=== PATIENT | female | born 1940 | race Caucasian/White ===

== ENCOUNTER → 2018-05-05 13:21 | Outpatient (CLI) | payer MEDICARE, OTHER, SELFPAY ==
--- NOTE | 2018-05-05 | DI.ECHO.S_ITS ---
[place] [facility] +---------+ : : [address] : : : : [id number] : : : : Phone: [phone]+ Echocardiogram Report + + :Name: JUAN ANTONIO SANDERS Study Date: 05/05/2018 Height: 62 in : :[facility] Weight: 96 lb : : Gender: Female BSA: 1.4 m2 : :: 1940 Age: 78 yrs BP: 142/70 mmHg: :Reason For Study: AFIB : :Ordering Physician: CAREY Brownlee : :Marlin Performed By: Asha Prater : :Referring: SINDY IVY : + + Interpretation Summary 1. Normal left ventricular size, wall thickness with an estimated EF of 40-45% 2. Normal right ventricular size with low normal systolic function. The estimated RVSP is 46 mm Hg. 3. Mild to moderate mitral regurgitation into a dilated left atrium When compared to the previous study of 2005 (only limited review of images as no report available), the LV function has decreased Procedure: A two-dimensional transthoracic echocardiogram with color flow and Doppler was performed. The study quality was technically good. Comparison is made with the echocardiogram of 10/12/2006. The heart rate ranged between 65-93 bpm during the study. Left Ventricle: The left ventricle is normal in size. There is normal left ventricular wall thickness. The ejection fraction is estimated to be 40-45%. Right Ventricle: The right ventricle is normal size. Right ventricular systolic function is at the lower limits of normal. Atria: The left atrium is severely dilated. The right atrium is mildly dilated. No color doppler evidence for an ASD. Mitral Valve: The mitral valve leaflets appear thickened, but open well. There is mild to moderate mitral regurgitation. Aortic Valve: The aortic valve is trileaflet. The aortic valve opens well. There is no aortic valve stenosis. There is trace aortic regurgitation. Tricuspid Valve: The tricuspid valve leaflets are thin and pliable. There is mild tricuspid regurgitation. The right ventricular systolic pressure is estimated at 46 mmHg assuming a right atrial pressure of 8 mm Hg. Pulmonic Valve: The pulmonic valve is not well seen, but is grossly normal. There is a trace or physiologic amount of pulmonic regurgitation. Great Vessels: The aortic root is normal size. The ascending aorta is normal in size. The pulmonary artery is normal size. The IVC is dilated (diameter is greater than 2.1 cm) yet it collapses greater than 50% with a sniff. This suggests a right atrial pressure of 8 mm Hg. Pericardium/ Pleura There is no pericardial effusion. There is no pleural effusion. MMode/2D Measurements & Calculations LVIDd: 4.1 cm LVOT diam: 1.9 cm LVIDs: 3.1 cm Ao root diam: 2.9 cm FS: 24.1 % asc Aorta Diam: 3.1 cm IVSd: 0.98 cm LVPWd: 0.83 cm LV cardoza. diameter/BSA (cm/m^2): 2.9 LV sys. diameter/BSA (cm/m^2): 2.2 LA A2 area: 20.5 cm2 RA long axis: 4.7 cm LA A4 area: 22.2 cm2 RA area: 17.0 cm2 LA length (vol): 5.1 cm RA vol: 52.2 ml LA vol: 75.4 ml RA : 37.3 ml/m2 LA vol index: 53.9 ml/m2 IVC diam: 2.1 cm RVD1 (basal): 3.5 cm LVAd ap4: 17.3 cm2 TAPSE: 1.2 cm LVAs ap4: 12.4 cm2 LVLs ap4: 5.2 cm LVAd ap2: 20.5 cm2 LVLd ap2: 7.3 cm Doppler Measurements & Calculations Ao V2 max: 68.6 cm/sec LVOT Max Balta: 53.6 cm/sec Ao V2 mean: 49.4 cm/sec LV V1 max P.2 mmHg Ao max P.9 mmHg LV V1 VTI: 9.1 cm Ao mean P.1 mmHg ROSEMARY(I,D): 2.3 cm2 Ao V2 VTI: 11.1 cm ROSEMARY(V,D): 2.2 cm2 sev ratio: 0.82 ROSEMARY indexed to BSA (cm^2/m^2): 1.6 MV E max balta: 89.6 cm/sec TR max balta: 307.1 cm/sec MV dec time: 0.20 sec TR max P.8 mmHg Reading Physician:ARACELY
== END ==
PROVIDERS: Visit Provider Physician Assistant
DX: I48.91 Unspecified atrial fibrillation (principal)
CPT/HCPCS: 93306

== ENCOUNTER → 2019-07-03 14:48 | Outpatient (CLI) | payer MEDICARE, OTHER, SELFPAY ==
--- NOTE | 2019-07-03 | DI.US.S_ITS ---
LIMITED ULTRASOUND OF LEFT BREAST AND AXILLA: 07/03/2019 CLINICAL: Palpable left axilla lump. Palpable left breast lump. Comparison is made to exam dated: 07/03/2019 [facility]. Color flow and real-time ultrasound of the left breast 5 o'clock, and axilla regions were performed. Duckworth scale images of the real-time examination were reviewed. There are atleast 6 enlarged left axillary nodes. A larger node measures 2.2 cm x 1.2 cm x 1.3 cm. The oval enlarged left level I axillary lymph node with eccentric cortical thickening with a circumscribed margin. This oval enlarged left level I axillary lymph node is hypoechoic with no fatty hilum. This correlates as palpated abnormality. Color flow imaging demonstrates that there is vascularity present. No abnormality seen at the 5:00 o'clock position to correspond to the clinically palpated abnormality. No suspicious right axillary adenopathy. IMPRESSION: SUSPICIOUS OF MALIGNANCY Several enlarged left axillary lymph nodes corresponding to the palpable abnormality are suspicious for malignancy. An ultrasound guided biopsy is recommended. No mass at 5:00 o'clock at the site of palpable abnormality. No right axillary adenopathy. Exam findings were discussed with the patient by Dr. Anatoly Chanel and called to the clinic office. This exam was interpreted at Station ID: [id number]. Electronically Signed By: Denver Sr M.D. slc/:07/03/2019 17:03:48 letter sent: Biopsy Required Ultrasound BI-RADS: 4 Suspicious abnormality
--- NOTE | 2019-07-03 14:52 | DI.MG.S_ITS ---
BILATERAL DIGITAL DIAGNOSTIC MAMMOGRAM 3D/2D: 07/03/2019 CLINICAL: Baseline exam. Left breast lumps. Comparison is made to exam dated: 07/03/2019 [facility]. The tissue of both breasts is extremely dense, which lowers the sensitivity of mammography. There is a lymph node in the left axilla corresponding to one of the palpable abnormalities. No mass is seen at 5:00 near the nipple in the left breast to correspond to the palpable abnormality. No other significant masses, calcifications, or other findings are seen in either breast. IMPRESSION: INCOMPLETE: NEEDS ADDITIONAL IMAGING EVALUATION Left axillary lymph node corresponding to palpable abnormality is indeterminate. An ultrasound is recommended and will immediately follow. No correlate for the palpable abnormality at 5:00 in the left breast. This exam was interpreted at Station ID: [id number]. NOTE: For mammograms, a report in lay terms will be sent to the patient. Approximately 15% of breast malignancies will not be visualized mammographically. In the management of a palpable breast mass, a negative mammogram must not discourage biopsy of a clinically suspicious lesion. Electronically Signed By: Denver Sr M.D. slc/:07/03/2019 16:50:40 ACR BI-RADS Category 0: Incomplete [id number]
== END ==
PROVIDERS: Visit Provider Student in an Organized Health Care Education/Training Program
DX: R92.8 Other abnormal and inconclusive findings on diagnostic imaging of breast (principal); N63.20 Unspecified lump in the left breast, unspecified quadrant; R59.0 Localized enlarged lymph nodes
CPT/HCPCS: 76642; 77066; G0279

== ENCOUNTER → 2019-07-18 13:58 | Outpatient (CLI) | payer MEDICARE, OTHER, SELFPAY ==
--- NOTE | 2019-07-18 | PATH_ITS ---
[facility] Accession Number: [id number] . 01 Material submitted: . axilla - LEFT AXILLARY LYMPH NODE . 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 . . . COMMENT: The results of this evaluation are discussed with Poppy Rodríguez PA-C at 1:25 p.m. on 07/20/2019. . Case reviewed by Dr. Jermain Brown, who agrees with the diagnosis. MRV/07/20/2019 . 02 Electronically signed: . Tye Olivares MD, Pathologist NPI- [id number] . 01 Gross description: . Received in one formalin-filled container, labeled with the patient's name and designated left axillary lymph node, are multiple 0.2 cm in diameter, cylindrical-shaped portions of tissue which range in length from 0.2 cm to 1.5 cm. The specimen is entirely submitted in one cassette. ([id number]) /R . 02 Microscopic: . Sections are of needle core biopsy material from the left axillary lymph node. The lymph node is partially replaced by metastatic, very poorly differentiated carcinoma. The tumor cells are large with round to slightly irregular nuclei, pale chromatin, and very prominent nucleoli. Cytoplasm is rather abundant and is pale, and cell margins are indistinct. Mitotic figures are easily identified. There is no definite organoid differentiation, and therefore, immunohistochemistry is performed in order to better delineate the primary site. . IMMUNOHISTOCHEMISTRY RESULTS: CK 5/6: Tumor cells positive. p40: Tumor cells negative. CK7: Tumor cells strongly positive. CK20: Tumor cells negative. HANNY-3: Tumor cells positive. . INTERPRETATION: This immunophenotype is most consistent with a primary tumor from breast or possibly urothelium. Clinical correlation is suggested. . * This test was developed and its performance characteristics determined by [facility]. It has not been cleared or approved by the U.S. Food and Drug Administration. The FDA has determined that such clearance or approval is not necessary. This test is used for clinical purposes. It should not be regarded as investigational or for research. . 02 Pathologist provided ICD-10: C77.3 . 02 CPT . 588130, W93134, [id number] Performed at: 01 [facility] [address] [id number] MD Shyam Edmonds MD Phone: [phone] Performed at: 02 [facility] [address] [place] [id number] MD Kamila Umaña MD Phone: [phone]
--- NOTE | 2019-07-18 | DI.US.S_ITS ---
ULTRASOUND GUIDED BIOPSY LEFT BREAST WITH MARKING DEVICE INSERTED AND POST ULTRASOUND IMAGIN07/18/2019 CLINICAL: Left axillary node biopsy. PATIENT CONSENT: Risks (minor bleeding, infection, vasovagal reaction and repeat procedure), benefits and alternatives were explained to the patient and written informed consent was obtained. Correlation is made to exams dated: 07/03/2019 ultrasound and 07/03/2019 mammogram [facility]. An ultrasound guided biopsy using real-time ultrasound was performed for the concerning lymph node located in the left axilla. This was described on the previous ultrasound report, and correlates with the patient's palpable abnormality. The skin was prepped in the usual manner. 8 mL of 1% lidocaine was used for local anesthesia. A skin rocío was made in the left axilla. The abnormality was approached from the lateral aspect. A 16 gauge biopsy needle was placed adjacent to the abnormality under ultrasound guidance. Once the needle was documented to be in the correct location, five specimens were obtained using an Achieve automated firing device. A Vision-type clip was inserted into the biopsy cavity. A skin adhesive and a skin closure strip were applied to the access site. Post procedure ultrasound imaging demonstrates the location device at the targeted area. The specimens were sent to the laboratory for pathological analysis. IMPRESSION: ULTRASOUND GUIDED BIOPSY MALIGNANT Ultrasound guided biopsy of the concerning lymph node in the left axilla was successful with no apparent post procedure complications. Pathology demonstrated metastatic poorly differentiated carcinoma morphologically consistent with primary in breast or possibly urothelium. Pathology is concordant. This exam was interpreted at Station ID: [id number]. Ganesh Sr M.D. [place] [facility] [place]:07/25/2019 18:46:18
--- NOTE | 2019-07-25 15:38 | ONC.MSW ---
Description: Navigation Introductory T/C Activity: MONKEY BREEDER/ASHLEY reviewed pt's new referral and clinicals. Attempted to call and introduce myself and establish initial rapport/assess immediate needs, however pt did not answer the phone, no voicemail. Called provider's office and relayed the appt time for patient for 08/16 at 2:00pm. 1:40pm check-in time. The office staff, Valentina, will call pt to relay this MONKEY BREEDER's contact info, apparently she screens her calls and will only answer if she knows you. Will plan to try to connect with her prior to her initial consult visit.
--- NOTE | 2019-08-09 11:28 | ONC.MSW ---
Description: Caregiving Resources Activity: Called pt and provided additional information re: caregiving agencies that could accomodate her shopping and in-home care needs. She will be going with [facility]. PATIENT SAFETY TECH encouraged her to call anytime before her initial consult visit should she have additional resource needs or questions.
== END ==
PROVIDERS: Visit Provider Student in an Organized Health Care Education/Training Program
DX: N63.20 Unspecified lump in the left breast, unspecified quadrant (principal)
CPT/HCPCS: 38505; 76942; 88305; 88341; 88342

== ENCOUNTER 2019-08-15 10:47 | Day surgery (SDC) | payer MEDICARE, OTHER, SELFPAY ==
[2019-08-15] VITALS (13 sets, daily range): BP systolic 159–213; BP diastolic 89–134; PULSE 76–103; RESP 12–17; TEMP 36.1–36.8; O2SAT 95–99; BMI 16.7
--- NOTE | 2019-08-15 | PATH_ITS ---
[facility] Accession Number: [id number] . 01 Material submitted: . breast - LEFT BREAST MASS . 01 Clinical history: . MALIGNANT NEOPLASM OF UNSPECIFIED SITE OF UNSPECIFIED . 01 Diagnosis: Left Breast Mass, Excision: Breast parenchyma with stromal fibrosis. Background breast with focal duct ectasia and obliteration, early fat necrosis, and apocrine metaplasia. Microcalcifications are present in association with benign breast parenchyma. Negative for atypia, carcinoma in situ, and malignancy. See comment. V 08/20/2019 0748 Local . 01 Comment: The specimen is entirely submitted for histologic examination; there is no evidence of biopsy site changes. . 01 Electronically signed: . Ann Marie Godoy MD, Pathologist NPI- [id number] . 01 Gross description: . Received: In formalin, labeled left breast mass, short=superior, long=lateral. Specimen: Left partial mastectomy. Weight: 9 grams. Measurement: 2.2 cm anterior to posterior, 4.4 cm medial to lateral, and 1.7 cm superior to inferior. Skin ellipse: Absent. Wire: Absent. Margins: Oriented by surgeon with short superior suture, long lateral suture and is inked as follows: posterior=black; anterior=purple; superior=blue; inferior=green; medial=yellow; lateral=orange. Sliced: Medial to lateral into 11 slices. Lesions: No obvious lesions are identified. Other: The cut surface is densely fibrous with minimal amount of yellow lobulated adipose tissue. Fixation time: The specimen was placed in formalin on 08/15/2019 with no time given. Approximate total fixation time in formalin-39 hours 30 minutes. Sections: A1: Slice 1, medial end of specimen, perpendicular. A2: Slice 2. A3: Slice 3. A4: Slice 4. A5: Slice 5. A6: Slice 6. A7: Slice 7. A8: Slice 8. A9: Slice 9. A10: Slice 10. A11-A12: Slice 11, lateral end of specimen, perpendicular. Specimen entirely submitted. ([id number]) /MRV 08/16/2019 1307 Local . 01 Microscopic: . Deeper levels are examined on blocks A9 and A11. . 01 Pathologist provided ICD-10: C50.919 . 01 CPT . 429687 Performed at: 01 [facility] [address] [place] [id number] MD Shyam Edmonds MD Phone: [phone]
[2019-08-15] MEDS: LACTATED RINGERS 1,000 ML 42 ML IV (13:00)
--- NOTE | 2019-08-15 13:13 | SUR.PREOP ---
Addendum to preoperative information; Anesthesia informed of B/P's, received no orders and will continue to start IV
--- NOTE | 2019-08-15 14:11 | PM.PREOP ---
Pre-operative Note Interval Note History & Physical reviewed/Exam performed by Physician: Yes Changes to H&P: No
[2019-08-15] MEDS: CEFAZOLIN 1 GM/50 ML FROZ.PIGGY IV (14:18)
--- NOTE | 2019-08-15 14:34 | SUR.OPER ---
Supine on padded OR bed, head on pillow, arms secured on padded arm boards at <90 degrees abduction, legs uncrossed, safety belt at thigh, tape over blanket over lower legs.
[2019-08-15] MEDS: BUPIVACAINE 0.25% (PF) VIAL 30 ML INJ (14:43)
--- NOTE | 2019-08-15 15:05 | PM.OP.1 ---
Operative Date/Time/Diagnoses Date of procedure: 08/15/19 Time of procedure: 15:34 Pre-op diagnosis: Left breast mass Post-op diagnosis: same Procedure & Clinicians Procedure: Excision of left breast mass Same procedure as scheduled: Yes Indications: 79-year-old female presented with a left breast mass and left axillary lymphadenopathy. She underwent workup that demonstrated no imaging findings of breast mass but axillary lymphadenopathy. The axillary lymph nodes were biopsied pathology demonstrated poorly differentiated carcinoma likely of breast origin. Since there was no imaging findings of a breast mass inconsistent with her physical exam she was taken to the operating room for an excision of the breast mass for diagnostic purpose Surgeon: Thong Lowe Click Yes if Unassisted: Yes Anesthesia Type: General Operative Notes Findings: Left breast mass Specimen(s): other (left breast mass) Estimated Blood Loss (mL): 5 Procedure in detail: Patient was brought to the operating room placed supine on the table. Bilateral lower extremity compression devices were applied. She was intubated with an endotracheal tube. She was prepped and draped in sterile fashion. A time-out was performed ensure the correct patient procedure necessary equipment within the operating room. The skin was infiltrated with 0.25% bupivacaine. Made incision in the inferior aspect of the breast over the palpable mass. Subcutaneous tissues were divided. The mass was dissected circumferentially and then passed off the field as specimen labeled left breast mass. A short stitch superior long stitch lateral. The wound was checked for hemostasis. The wound was then reapproximated using 3 0 Vicryl and then the skin closed with Monocryl followed by the application of Dermabond. Patient tolerated procedure well. Sponge instrument count at the end the operation was correct. Patient emerged from anesthesia was transferred to the postoperative care unit in stable condition. Post-operative Condition: stable Disposition: same day surgery
--- NOTE | 2019-08-15 16:57 | SUR.PHASEII ---
Called Dr. Lowe's office to clarify when to restart Eliquis, per MD's nurse, pt to restart Eliquis tomorrow, 08/16.
== END 2019-08-15 16:30 | disposition home or self-care (01) ==
PROVIDERS: Family Provider Internal Medicine; PCP Internal Medicine; Visit Provider Surgery
PROC: (CPT 19301; principal; 2019-08-15 12:45)
DX: C50.919 Malignant neoplasm of unspecified site of unspecified female breast (principal); I48.91 Unspecified atrial fibrillation; I10 Essential (primary) hypertension
CPT/HCPCS: 19301; J2405; J2704; J3010

== ENCOUNTER → 2019-09-05 18:57 | Outpatient (ROUT) | payer MEDICARE, OTHER, SELFPAY ==
[2019-09-05 19:01] LABS: Bacteria Urine None Seen
[2019-09-05 19:07] LABS: Appearance Urine UA CLEAR; Bilirubin Urine UA NEGATIVE (NEGATIVE); Color Urine UA YELLOW; Glucose Urine UA NEGATIVE (Negative); Ketones Urine UA NEGATIVE (NEGATIVE); Leukocyte Esterase Urine UA NEGATIVE (NEGATIVE); Nitrite Urine UA NEGATIVE (Negative); Occult Blood Urine UA NEGATIVE (Negative); Protein Urine UA NEGATIVE (Negative); Specific Gravity Urine UA <=1.005 (1.000-1.035); Urobilinogen Urine UA 0.2 E.U./dL (0.2)
[2019-09-05 19:09] LABS: Add Manual Diff / Slide Review NO; Basophils Absolute Auto 100 /uL (0-100); Basophils Percent Auto 0.8 % (0-2); Eosinophils Absolute Auto 200 /uL (0-450); Eosinophils Percent Auto 1.7 % (2-4); Hematocrit 40.5 % (36-46); Hemoglobin 13.1 g/dL (12.0-16.0); Lymphocytes Absolute Auto 1800 /uL (1100-4500); Lymphocytes Percent Auto 18.3 % (25-40); Mean Corpuscular HGB Conc 32.4 % (30-36); Mean Corpuscular Hemoglobin 27.9 PG (26-34); Mean Corpuscular Volume 86.1 fL (80-100); Monocytes Absolute Auto 500 /uL (0-900); Monocytes Percent Auto 5.1 % (3-14); Neutrophils Absolute Auto 7300 /uL (1500-7000); Neutrophils Percent Auto 74.1 % (50-75); Platelet Count 354 X10^3/uL (150-400); Red Cell Distribution Width 14.7 % (11.6-14.8); White Blood Cell Count 9.8 X10^3/uL (4.5-11.0)
[2019-09-05 19:24] LABS: Alanine Aminotransferase 24 IU/L (9-52); Albumin 4.6 g/dL (3.5-5.0); Albumin Globulin Ratio 1.5 (1.0-2.8); Alkaline Phosphatase 115 U/L (38-126); Aspartate Aminotransferase 30 IU/L (14-36); BUN Creatinine Ratio 27.1 (6-22); Bilirubin Total 0.5 mg/dL (0.2-1.3); Blood Urea Nitrogen 19 mg/dL (7-17); C-Reactive Protein Quant 0.7 mg/dL (<1.0); Calcium 10.4 mg/dL (8.4-10.2); Carbon Dioxide 28 mmol/L (22-32); Chloride 99 mmol/L (98-107); Estimated Glomerular Filt Rate > 60.0 mL/min (>60); Globulin 3.1 g/dL (1.7-4.1); Glucose 112 mg/dL (80-110); Potassium 3.3 mmol/L (3.4-5.1); Sodium 141 mmol/L (137-145); Total Protein 7.7 g/dL (6.3-8.2)
[2019-09-05 19:37] LABS: Culture Indicated Urine Cult Not Indicated; Erythrocyte Sedimentation Rate 7 MM/HR (0-20); RBC Urine 0-1/HPF (0-5/HPF); Squamous Epithelial Cell Urine 0-1 /HPF (0-5/HPF); Urine Comments Microscopic Normal; WBC Urine 0-1/HPF (0-5/HPF)
[2019-09-05 19:55] LABS: Thyroid Stimulating Hormone 1.13 uIU/mL (0.47-4.68)
[2019-09-06 15:25] LABS: HEMOLYSIS < 15 (0-50)
[2019-09-06 17:25] LABS: Prealbumin 23.5 mg/dL (17.6-36.0)
[2019-09-06 17:50] LABS: Carcinoembryonic Antigen 2.4 ng/mL (0.1-3.0)
[2019-09-11 10:38] LABS: Cancer Antigen 27.29 41 U/mL (< 38)
== END ==
PROVIDERS: Family Provider Internal Medicine; PCP Internal Medicine; Visit Provider Internal Medicine
DX: C80.1 Malignant (primary) neoplasm, unspecified (principal); R59.0 Localized enlarged lymph nodes; R63.4 Abnormal weight loss
CPT/HCPCS: 80053; 81001; 82378; 84134; 84443; 85025; 85651; 86140; 86300

== ENCOUNTER → 2019-09-13 07:57 | Outpatient (CLI) | payer MEDICARE, OTHER, SELFPAY ==
--- NOTE | 2019-10-02 11:42 | ONC.MSW ---
Description: T/C re: Appt. Activity: Left pt a message to please return this call re: her upcoming consult visit appt.
== END ==
PROVIDERS: Family Provider Internal Medicine; PCP Internal Medicine; Visit Provider Surgery
DX: N63.20 Unspecified lump in the left breast, unspecified quadrant (principal); Z53.9 Procedure and treatment not carried out, unspecified reason

== ENCOUNTER → 2019-12-11 12:22 | Outpatient (CLI) | payer MEDICARE, OTHER, SELFPAY ==
--- NOTE | 2019-12-11 12:50 | DI.CT.S_ITS ---
PROCEDURE: CT CHEST WO CON INDICATIONS: breast cancer, postiive lymph node TECHNIQUE: Noncontrast 5 mm thick sections acquired from the pulmonary apices to the posterior costophrenic angles. 1 mm lung window, 5 mm thick coronal and sagittal and 7 mm axial MIP reformats were then acquired. For radiation dose reduction, the following was used: automated exposure control, adjustment of mA and/or kV according to patient size. COMPARISON: [place], [place], CT PET CT FUSION SKULL 2 THIGH, 09/12/2019, 14:02. FINDINGS: Image quality: Excellent. Lungs and pleura: No acute consolidation. Scattered scarring/atelectasis. Upper lobe predominant centrilobular emphysema. There is biapical scarring. Prominent ill-defined pleural-based attenuation seen in the anterior right upper lobe for example image 69 series 3 is indeterminate especially in the absence of relevant prior studies. There is associated 7 mm nodular focus on image 63/3. Overall, this is unchanged since PET/CT dated 09/12/19, during which no significant FDG uptake suggestive of scarring. Recommend attention to this area however on subsequent surveillance CTs. No pleural effusions or pneumothorax. Central and peripheral airways are patent and normal in caliber. Mediastinum: Heart size is normal. Coronary artery calcifications are present. No pericardial effusion. No mediastinal adenopathy by size criteria. Thoracic aorta and central pulmonary arteries are normal in size. Esophagus is normal in caliber. No hiatal hernia. Numerous enlarged left axillary lymphadenopathy, which demonstrates interval progression since 09/11/19 for example lymph node image 14/2 measures 3.1 x 2.0 cm, previously 2.3 x 2.0 cm. Abdomen: Visualized upper abdominal solid organs and bowel loops appear normal in the absence of contrast. IMPRESSION: Interval progression in multiple enlarged left axillary lymph nodes since 09/12/19 Diffuse presumed scarring and postinflammatory changes in addition to upper lobes predominant centrilobular emphysema as commented above the. Dictated by: Anatoly Chanel M.D. on 12/11/2019 at 14:20 Approved by: Anatoly Chanel M.D. on 12/11/2019 at 14:28
== END ==
PROVIDERS: PCP Internal Medicine; Visit Provider Internal Medicine Hematology & Oncology
DX: C50.919 Malignant neoplasm of unspecified site of unspecified female breast (principal); R59.0 Localized enlarged lymph nodes; J43.2 Centrilobular emphysema; I25.10 Atherosclerotic heart disease of native coronary artery without angina pectoris
CPT/HCPCS: 71250

== ENCOUNTER → 2019-12-19 14:30 | Oncology outpatient (ONC) | payer MEDICARE, OTHER, SELFPAY ==
--- NOTE | 2019-08-15 15:51 | ONC.SCHED ---
After phone call from Dr. Lowe re: having bx performed 08/15/19 and not having pathology, left voicemail for patient that appt for 08/16/19 is cancelled and to call to reschedule after receipt of pathology
--- NOTE | 2019-08-21 16:06 | ONC.SCHED ---
Spoke with patient to get her scheduled for consult with Dr. Zeng 09/10/19. She would have liked to get in sooner but she can't arrange earlier apt.'s due to lack of a ride. I sent an email out to Sherlyn Rodney to see if she can help with rides.
--- NOTE | 2019-09-04 08:33 | ONC.MSW ---
Description: MRI Scheduling Activity: Per Dr. Lowe at [facility], [employer] f/u to clarify why pt has not yet had her MRI/CT that he had ordered. Pt had chosen a later ONC initial appt. due to transportation needs, so has not yet been seen in Oncology. DESK [employer]IE[employer] called [facility] and requested the manufacturing scheduler to assist with scheduling these scans.
--- NOTE | 2019-10-11 13:29 | P.CONONC_ITS ---
History of Present Illness - Data of Consult Patient: new to practice Consult date: 10/11/19 Requesting Physician: Tanesha Phillips MD Primary Care Provider: Tanesha Phillips MD - Consult Narrative Reason for consult: Left axillary mass Narrative: Annamarie Robins is a 79 year old female. She admits to smoking 2-3 pack per since she was about 15 years of age. She said that in May of 2019. she palpated two nonpainful lumps in her left arm pit. She went to [facility] and was evaluated by Poppy Rodríguez PA-C on 06/15/2019. Annamarie then underwent bilaterral diagnostic mammogram on . The mammogram showed a lymph node in the left axilla corresponding to one of the palpable abnormalities. Same day US of the breast showed There were at least 6 enlarged left axillary nodes. A larger node measured 2.2 cm x 1.2 cm x 1.3 cm noted. on 07/18/2019, she underwent Ultrasound guided biopsy of the concerning lymph node in the left axilla. The pathology showed metastatic poorly differentiated carcinoma With indeterminate primary site. In the cancer cells are negative for ER (<1%) and negative for MI (<1%) and negative for HER-2 (0+). The neoplastic cells were immunopositive for MOC31,Octavio?EP4, CD5/6, and GATA3. These neoplastic cells were negative for WT1, PAX8, CDX2, villin, TTF-1, napsin A, mammoglobin, GCDFP, and uroplakin. These immunohistochemistry studies are not diagnostic for breast origin, but to fever that possibility, if clinical and imaging findings are concordant. On July 27, 2019, patient was evaluated at that time Thong Lowe. There is a palpable breast mass in the inferior lateral left breast. However the mass was not radiographically identifiable. On August 15, 2019, patient was taken to the operating room for an excision of the palpable left breast mass for the purposes of diagnosis. The pathology showed breast parenchyma with stromal fibrosis, background breast with focal ductal ectasia and obliteration, early fat necrosis and apocrine metaplasia, microcalcifications in association with benign breast parenchyma, and was negative for atypia, carcinoma in situ, and malignancy. On 09/12/2019, she underwent PET/CT that revealed mildly increased uptake in the left breast, and multiple hypermetabolic left axillary lymph nodes consist with metastases. She denies headache. She has lower back and left hip pain, which is normal for her. She has osteopenia. She has shortness of breath presumably due to afib. Her appetite comes and goes. She denies nausea or vomiting. She lost about 8 lbs of weight. CC: August Zeng MD Home Medications and Allergies Home Medications Medication Instructions Recorded Confirmed Type Eliquis 2.5 mg PO BID 08/10/19 08/15/19 History chlorthalidone 25 mg PO DAILY PRN 08/10/19 08/10/19 History cholecalciferol (vitamin D3) 2,000 unit PO DAILY 08/10/19 08/15/19 History [Vitamin D3] gabapentin 300 mg PO BID 08/10/19 08/15/19 History losartan 50 mg PO BID 08/10/19 08/15/19 History metoprolol succinate 50 mg PO DAILY 08/10/19 08/15/19 History naproxen sodium [Aleve] 440 mg PO DAILY PRN 08/10/19 08/15/19 History tramadol 25 mg PO BID PRN 08/10/19 08/10/19 History tramadol 50 mg PO Q8H PRN #20 tab 08/15/19 Rx Allergies Allergy/AdvReac Type Severity Reaction Status Date / Time amlodipine AdvReac Urinary Verified 08/10/19 10:42 retention carvedilol AdvReac Weakness, Verified 08/10/19 10:42 abdominal pain hydrochlorothiazide AdvReac Hyponatremi Verified 08/10/19 10:42 a Medical History - Medical, Surgical, Family History Medical History: Medical History (Last Updated 08/14/19 @ 07:31 by Kesha Barahona RN) Afib Onset Date: ~04/2018 Breast cancer Cardiac murmur Cardiomyopathy Cervical spinal stenosis COPD (chronic obstructive pulmonary disease) Easy bruisability Former smoker Glaucoma Onset Date: ~04/2015 Lumbar degenerative disc disease Mitral and aortic valve regurgitation Osteopenia Osteoporosis PMR (polymyalgia rheumatica) Pre-diabetes Raynaud's syndrome SCC (squamous cell carcinoma) Onset Date: ~2007 Sepsis due to urinary tract infection Onset Date: 02/07/19 Short-term memory loss Surgical History: Surgical History (Last Updated 08/10/19 @ 11:00 by Kesha Barahona RN) History of appendectomy Hx of bilateral cataract extraction Onset Date: ~2011 Status post Mohs surgery - Social History Smoking Status: Former smoker (quitted 2013.) Substance Use Type: does not use Alcohol Intake: never Review of Systems All systems PM: reviewed and no additional remarkable complaints except as stated Exam Vital signs: Last Vital Signs Temp 98.2 F 10/11/19 15:27 Pulse 81 10/11/19 15:27 Resp 18 10/11/19 15:27 BP 181/98 H 10/11/19 15:27 Pulse Ox 98 10/11/19 15:27 - Constitutional positive no acute distress, positive cachectic, positive chronically ill appearing - Routine HEENT Exam Head: Present: normocephalic, atraumatic Eye: Present: EOMI, PERRL, normal accommodation. Absent: conjunctival icterus ENT: Present: mucous membranes moist - Routine Neck Exam Present: supple. Absent: lymphadenopathy, thyromegaly, tenderness, swelling - Routine Chest/Breast/Axilla Exam Axillae: Absent: lymphadenopathy, mass Comments: No palpable lymph nodes or masses in the right axilla. In the left axilla, there were at least three palpable matted lymph nodes. The biggest measuring about 3 cm in size. The smallest probably around 1 cm in size. Semi-mobile. Nontender. - Detailed Breast Exam left Inspection: Absent: rash, erythema, swelling, peau d'orange, nipple discharge, area of retraction, discharge Palpation: Absent: mass, tenderness, induration right Inspection: Absent: rash, erythema, swelling, peau d'orange, nipple discharge, area of retraction, discharge Palpation: Absent: mass, tenderness, induration - Routine Respiratory Exam Present: Clear to auscultation bilaterally, decreased breath sounds. Absent: wheezes - Routine Cardiovascular Exam Present: S1, S2, irregularly irregular - Routine Abdominal Exam Present: soft. Absent: tenderness, distended, organomegaly - Routine Extremities Exam Absent: edema - Routine Neurological Exam Present: alert, oriented X3, CN II-XII intact. Absent: sensory deficit, motor deficit - Routine Psychiatric Exam Present: normal affect - Additional findings Additional findings: patient appears very frail. clinical encounter was carried out with the patient lying on the examination table. She is complaining significant fatigue. Results - Labs Reviewed. - Imaging Additional studies: Procedures Insertion of intraocular lens prosthesis at time of cataract extraction, one- stage (07/26/12) Phacoemulsification and aspiration of cataract (07/26/12) Assessment and Plan (1) Mass of axillary tail of left breast Overview: 79 year old frail female palpated multiple lumps in the left axilla In May 2019. 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 Diagnostic bilateral mammogram as well as ultrasound of the left breast did not reveal any primary lesions in the breasts. and a palpable left breast inferior lateral mass was exercised in July 2019 which showed no evidence of malignancy. Post operative CT reviewed mild increased FDG uptake in the left breast in addition to multiple hypermetabolic masses/lymph nodes in the left axilla. Assessment: I talked with the patient that the question is we do not know whether this is a breast cancer with metastasis to the left axilla or a metastatic cancer from other primary site. I agree that the MRI of the breast is indicated. However patient is afraid of the MRI and she has significant claustrophobia. She refuses MRI of the breast. Patient has a very strong smoking history. She smoked 2-3 packs per day since the age of 15. I will obtain a CT chest w/o contrast to evaluate the possibility of primary lung cancer. In addition hopefully the CT chest will include the the breasts. Patient is very frail. I don't think she is a good candidate for any cytotoxic chemotherapy. In my opinion, chemotherapy is more harmful than benefit. If the CT scan does not show any lesions in the lung, I would recommend either surgical resection of the left axillary masses or radiation therapy as a palliative process. And hopefully it will provide some benefit. Otherwise palliated/hospice care are to be discussed. Plan: CT chest w/o contrast RTC after scan
[2019-10-11 15:27] VITALS: BP 181/98; PULSE 81; RESP 18; TEMP 36.8; O2SAT 98
--- NOTE | 2019-11-05 13:39 | ONC.MSW ---
Description: Transportation Activity: Called pt to clarify if she has transportation to her next appt. on 11/12, which she did not. She gave this CREDIT CARD CONTROL CLERK permission to call the [facility] to request transportation on her behalf. She also missed her last CT scan on 10/26, which she shares that she missed due to being ill for some time now. CREDIT CARD CONTROL CLERK called and requested the ride. They will call her directly by Friday 11/09 to confirm if they found a volunteer dumpster driver or not.
--- NOTE | 2019-11-20 12:48 | ONC.MSW ---
Description: T/C re: missed appts, care plan Activity: Called and left a message for pt re: what she would like to do moving forward, that we are needing to cancel her appt. on 11/22 because she missed her appt. on 11/16 and the doctor needed that information in order to move forward. Requested that she call this MANAGER PARK back to direct us as to what her goals are for continued care, including transportation to get to appts.
--- NOTE | 2019-12-10 15:56 | ONC.MSW ---
Description: T/C re: Appt. Coordination Activity: KOBI called pt to discuss tomorrow's appt., and that we have not been able to arrange a ride for her. She would like to keep the appt. and will plan to take a taxi. SERVICE RIG OPERATOR also was able to reschedule pt's CT scan for tomorrow at 1:00, prior to her appt. with Dr. Zeng. She expressed understanding and will make both appts.
[2019-12-11 15:18] VITALS: BP 182/90; PULSE 93; RESP 16; TEMP 36.6; O2SAT 100
--- NOTE | 2019-12-11 15:34 | P.PNONC_ITS ---
PN -Subjective Interval history: ID/CC: left axillary lymphadenopathy Oncology History: Annamarie Robins is a 79 year old female. She admits to smoking 2-3 pack per since she was about 15 years of age. She said that in May of 2019. she palpated two nonpainful lumps in her left arm pit. She went to [facility] [place] and was evaluated by Poppy Rodríguez PA-C on 06/15/2019. Annamarie then underwent bilaterral diagnostic mammogram on . The mammogram showed a lymph node in the left axilla corresponding to one of the palpable abnormalities. Same day US of the breast showed There were at least 6 enlarged left axillary nodes. A larger node measured 2.2 cm x 1.2 cm x 1.3 cm noted. on 07/18/2019, she underwent Ultrasound guided biopsy of the concerning lymph node in the left axilla. The pathology showed metastatic poorly differentiated carcinoma With indeterminate primary site. In the cancer cells are negative for ER (<1%) and negative for [place] (<1%) and negative for HER-2 (0+). The neoplastic cells were immunopositive for MOC31,Octavio?EP4, CD5/6, and GATA3. These neoplastic cells were negative for WT1, PAX8, CDX2, villin, TTF-1, napsin A, mammoglobin, GCDFP, and uroplakin. These immunohistochemistry studies are not diagnostic for breast origin, but to fever that possibility, if clinical and imaging findings are concordant. On July 27, 2019, patient was evaluated at that time Thong Lowe. There is a palpable breast mass in the inferior lateral left breast. However the mass was not radiographically identifiable. On August 15, 2019, patient was taken to the operating room for an excision of the palpable left breast mass for the purposes of diagnosis. The pathology showed breast parenchyma with stromal fi brosis, background breast with focal ductal ectasia and obliteration, early fat necrosis and apocrine metaplasia, microcalcifications in association with benign breast parenchyma, and was negative for atypia, carcinoma in situ, and malignancy. On 09/12/2019, she underwent PET/CT that revealed mildly increased uptake in the left breast, and multiple hypermetabolic left axillary lymph nodes consist with metastases. Interim Events: more sob, but no headache left axialla discomfort and pain. using pillow. 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 she is not using oxygen. no new bone pain. - Patient Self-Reported Symptoms SR Constitution: Fatigue/Malaise SR respiratory issues: Shortness of breath SR Cardiovascular issues: Shortness of breath with activity or lying flat SR Skin issues: Dry skin SR Gastrointestinal issues: Poor or no appetite SR Genitourinary issues: Frequent urination, Change in stream, Incontinence SR Musculoskeletal issues: Muscle weakness, Cold hands or feet, Difficulty walking SR Neuro issues: Tremors or shaking, Difficulty balancing SR Hematologic issues: Swollen lymph nodes SR Endocrine issues: Cold intolerance, Heat intolerance, Excessive thirst, Excessive urination, Hot flashes Home Medications and Allergies Home Medications Medication Instructions Recorded Confirmed Type Eliquis 2.5 mg PO BID 08/10/19 12/11/19 History chlorthalidone 25 mg PO DAILY PRN 08/10/19 12/11/19 History cholecalciferol (vitamin D3) 2,000 unit PO DAILY 08/10/19 12/11/19 History [Vitamin D3] gabapentin 300 mg PO BID 08/10/19 12/11/19 History losartan 50 mg PO BID 08/10/19 12/11/19 History metoprolol succinate 50 mg PO DAILY 08/10/19 12/11/19 History naproxen sodium [Aleve] 440 mg PO DAILY PRN 08/10/19 12/11/19 History tramadol 25 mg PO BID PRN 08/10/19 12/11/19 History tramadol 50 mg PO Q8H PRN #20 tab 08/15/19 12/11/19 Rx Allergies Allergy/AdvReac Type Severity Reaction Status Date / Time amlodipine AdvReac Urinary Verified 08/10/19 10:42 retention carvedilol AdvReac Weakness, Verified 08/10/19 10:42 abdominal pain hydrochlorothiazide AdvReac Hyponatremi Verified 08/10/19 10:42 a Exam Vital signs: Vital Signs Temp Pulse Resp BP Pulse Ox 12/11/19 15:18 97.8 F 93 H 16 182/90 H 100 Narrative: - Constitutional positive no acute distress, positive cachectic, positive chronically ill appearing - Routine HEENT Exam Head: Present: normocephalic, atraumatic Eye: Present: EOMI, PERRL, normal accommodation. Absent: conjunctival icterus ENT: Present: mucous membranes moist - Routine Neck Exam Present: supple. Absent: lymphadenopathy, thyromegaly, tenderness, swelling - Routine Chest/Breast/Axilla Exam Axillae: Absent: lymphadenopathy, mass Comments: No palpable lymph nodes or masses in the right axilla. In the left axilla, there were at least three palpable matted lymph nodes. The biggest measuring about 3 cm in size. The smallest probably around 1 cm in size. Semi-mobile. Nontender. - Detailed Breast Exam left Inspection: Absent: rash, erythema, swelling, peau d'orange, nipple discharge, area of retraction, discharge Palpation: Absent: mass, tenderness, induration right Inspection: Absent: rash, erythema, swelling, peau d'orange, nipple discharge, area of retraction, discharge Palpation: Absent: mass, tenderness, induration - Routine Respiratory Exam Present: Clear to auscultation bilaterally, decreased breath sounds. Absent: wheezes - Routine Cardiovascular Exam Present: S1, S2, irregularly irregular - Routine Abdominal Exam Present: soft. Absent: tenderness, distended, organomegaly - Routine Extremities Exam Absent: edema - Routine Neurological Exam Present: alert, oriented X3, CN II-XII intact. Absent: sensory deficit, motor deficit - Routine Psychiatric Exam Present: normal affect Results - Imaging Additional studies: Procedures Insertion of intraocular lens prosthesis at time of cataract extraction, one- stage (07/26/12) Phacoemulsification and aspiration of cataract (07/26/12) Assessment and Plan (1) Mass of axillary tail of left breast Overview: 79 year old frail female palpated multiple lumps in the left axilla In May 2019. 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 Diagnostic bilateral mammogram as well as ultrasound of the left breast did not reveal any primary lesions in the breasts. and a palpable left breast inferior lateral mass was exercised in July 2019 which showed no evidence of malignancy. Post operati ve CT reviewed mild increased FDG uptake in the left breast in addition to multiple hypermetabolic masses/lymph nodes in the left axilla. Assessment: Today I talked with the patient again about MR scan to evaluate possible primary breast cancer. However patient is very adamant that she did not want to do any MRI scan. I talked with her that in my opinion she most likely has a left breast triple negative breast cancer with metastasis to the left axillary lymph nodes. Up until now cook in a the scans showed no evidence of distant metastasis. I talked with her that we can probably try low-dose paclitaxel with or without atezolizumab to see if patient can have some response. If the lymph nodes showing leuks, patient may be a good candidate for surgical resection followed by radiation therapy. Patient voiced understanding and willingness to proceed. Plan: Port placement Weekly paclitaxle x 12 RTC after scan
--- NOTE | 2019-12-12 16:05 | ONC.SCHED ---
patient asked to have port placement cancelled, she will listen to the chemo teaching on the and decide then if she wants to go forward with the treatment
--- NOTE | 2019-12-20 13:44 | PC.NURSE ---
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 Pt accompanied by neighbor, Nadira. Pt added Nadira to auth to discuss list and completed form. Second RN, Shubham present throughout entire time of teaching. Provided written information on all topics discussed. Written materials printed from [email or web address] Patient given an overview of cancer and mechanism of action of cancer cells, that cancer is caused by cells that are dividing rapidly, and out of control. Traditional chemotherapy works by targeting the fast dividing cells and killing them. Chemotherapy affecting healthy cells dividing quickly causes many of the side effects (hair follicles, bone marrow, mucus membranes). Overview of blood cell functions of white cells to fight infection, red cells to carry oxygen, and platelets to stop bleeding was discussed, and that when bone marrow is affected by chemo, there is a decrease in production of these cells. Home care of the patient following chemotherapy was discussed. Body fluids will be contaminated for 48 hours following treatment, and any body fluids handled by caregivers should be handled wearing gloves, surfaces need to be cleaned with soap and water, any soiled linens or clothing need to be washed separately in hot water, toilet lid should be closed when flushing, person cleaning the toilet should wear gloves. How chemotherapy is administered by the RN?s in the clinic, that orders are double checked by pharmacy and checked again by two RN?s prior to administration. Nurses wear protective gear to prevent exposure to them of the chemotherapy agents which can also cause cancer. Cancer center information discussed and written hand out provided listing on-call oncologist available weekends and after hours triage R.N. hours and infusion room guide. New patient binder given which includes clinic names, phone numbers, clinic information, calendar, cancer glossary, and list of resources. Common side effects of chemotherapy were discussed with self care tips for prevention of complications. These included: Low blood counts (anemia, thrombocytopenia, neutropenia) Hair loss (alopecia) Nausea and vomiting Decreased appetite Loss of fertility Diarrhea Mouth sores Constipation Peripheral neuropathy Chemo brain/cognitive changes Fatigue Instructions on when to call your healthcare team or on-call physician immediately: Fever of 100.4 or higher, chills, any signs of infection Shortness of breath, wheezing, difficulty breathing, closing of throat, swelling of face, hives (signs of possible allergic reaction) Chest pain, fast heart beat or feelings of a different heart rhythm Swelling of an extremity with or without pain signs of stroke Instructions on when to call your healthcare team within the next 24 hours Nausea that interferes with ability to eat and unrelieved with prescribed medication Diarrhea (4-6 episodes in 24 hour period). Unusual bleeding or bruising Black or tarry stools, or blood in your stools Blood in the urine pain or burning with urination Extreme fatigue (unable to perform self-care activities) Mouth sores or sore areas in your mouth Bad headache Dizziness or lightheadedness Large weight gain over a short period of time General self-care tips while undergoing treatment discussed were as follows. Written materials were provided covering in detail and additional self care tips. Drink at least 2-3 quarts (8-10 glasses) of no-caffeinated beverages daily unless you are instructed otherwise and empty your bladder frequently Report any concerning symptoms to your healthcare team Avoid crowds and sick people, wash your hands frequently Use a soft bristled toothbrush, rinse three times a day with 1 tsp baking soda or 1 tsp salt mixed with warm water Avoid any mouthwashes or oral and skin products containing alcohol or fragrances Use electric razors to avoid cutting yourself Avoid contact sports or activities that could cause head injury or bleeding Avoid sun exposure, wear SPF 15 or higher, wear protective clothing Get plenty of rest, meter your activities Maintain good nutrition Avoid alcoholic beverages Attend your scheduled appointments and lab draws Pt admitted several times throughout teaching that she had a hard time remembering different things and appointments. Pt also explained that she thought the goal of therapy was cure. Explained to pt according to Dr. Zeng, the goal is palliative. Further explained the difference between the two goals of therapy, pt verbalized understanding. Pt had questions r/t finishing last step of teeth implant procedure prior to start of chemo. Pt also asked if she should see her anesthesiology physician prior to beginning treatment. Informed pt that this nurse would speak to Dr. Zeng on Dec 20 and would call her back with his response, pt in agreement. Encouraged pt to call this clinic with any questions and concerns that arise. Also, encouraged pt to further speak with Dr. Zeng regarding goal of treatment if she had any questions. Pt verbalized understanding.Tour of infusion room provided. All questions answered.
--- NOTE | 2019-12-20 14:54 | PC.NURSE ---
Addendum entered by Shubham Alejandra R.N. 12/20/19 15:01: Did confirm that pt does have life alert services. Addendum entered by Shubham Alejandra R.N. 12/20/19 14:58: Pt's neighbor was called, Nadira to be updated. Left message awaiting phone call back. Original Note: F/U phone conversation with Pt. post chemo teaching. Pt had questions for Dr. Zeng regarding dental implants, and seeing her recoater prior to chemotherapy. Pt was told that she does need to get dental implants prior to chemo, but that she does not need to see her recoater prior to chemo. Pt still undecided as to whether or not she is going to do chemo, will f/u with patient regarding chemo consent, port placement if she decides to pursue chemo as a treatment option. Pt verbalized understanding.
--- NOTE | 2019-12-25 10:24 | ONC.MSW ---
Description: T/C re: tx Activity: Left message for pt re: wanting to speak w/her about next steps for treatment, requested a return call.
--- NOTE | 2019-12-26 14:14 | ONC.MSW ---
Description: T/C re: goals for tx Activity: Pt returned call from [employer]. She states that her primary goal is to complete getting her implants done, which won't be done until the end of January. She is not interested in chemotherapy. [facility] provided teaching that her cancer will continue to progress without treatment, which was explained to her previously by Dr. Zeng. She expressed understanding, and is open to receiving an informational visit from [facility]. [facility] faxed pt's clinicals to hospice and requested the info visit. Pt will call this [facility] to update re: her plan.
== END ==
PROVIDERS: Family Provider Internal Medicine; PCP Internal Medicine; Visit Provider Internal Medicine Hematology & Oncology
DX: C77.3 Secondary and unspecified malignant neoplasm of axilla and upper limb lymph nodes (principal); C80.1 Malignant (primary) neoplasm, unspecified
CPT/HCPCS: 71250; 99204; 99214

== ENCOUNTER 2020-02-22 06:48 | Inpatient (IN) | payer MEDICARE, SELFPAY ==
[2020-02-22] VITALS (14 sets, daily range): BP systolic 133–243; BP diastolic 69–125; PULSE 78–92; RESP 14–19; TEMP 35.8–36.8; O2SAT 95–99; BMI 17.4
--- NOTE | 2020-02-22 06:49 | DI.RAD.S_ITS ---
PROCEDURE: XR HIP W PEL IF DONE LT 2V INDICATIONS: ground level fall TECHNIQUE: AP pelvis with lateral view(s) of the left hip(s). COMPARISON: None. FINDINGS: Bones: Displaced and varus angulated intertrochanteric left femur fracture. Pelvic ring appears intact. No suspicious bony lesions. Soft tissues: The visualized bowel gas pattern is normal. No suspicious soft tissue calcifications. IMPRESSION: Intertrochanteric proximal left femur fracture. Dictated by: Mckenna Hatch MD, PhD on 02/22/2020 at 8:55 Approved by: Mckenna Hatch MD, PhD on 02/22/2020 at 8:56
--- NOTE | 2020-02-22 06:49 | DI.RAD.S_ITS ---
PROCEDURE: XR WRIST LT 2V INDICATIONS: obvious deformity TECHNIQUE: A 2 views of the wrist were acquired. COMPARISON: None. FINDINGS: Bones: Comminuted, intra-articular, displaced and angulated distal radius fracture. Displaced ulnar styloid process fracture. No suspicious bony lesions. Radiocarpal, triscaphe and first CMC joint osteoarthritis. Scaphoid view: Not requested. Soft tissues: No suspicious soft tissue calcifications. IMPRESSION: 1. Comminuted, intra-articular distal radius fracture. 2. Displaced ulnar styloid process fracture. Dictated by: Mckenna Hatch MD, PhD on 02/22/2020 at 8:52 Approved by: Mckenna Hatch MD, PhD on 02/22/2020 at 8:53
--- NOTE | 2020-02-22 06:49 | DI.RAD.S_ITS ---
PROCEDURE: XR CHEST 1V INDICATIONS: fall, trauma, preop TECHNIQUE: One view of the chest was acquired. COMPARISON: [facility], , CHEST 2 VIEW, 12/24/2011, 12:49. FINDINGS: Surgical changes and devices: None. Lungs and pleura: Lungs are clear. No pleural effusions or pneumothorax. Lungs are hyperinflated suggesting COPD. Mediastinum: Mediastinal contours appear normal. Heart size is normal. Bones and chest wall: No suspicious bony lesions. Overlying soft tissues appear unremarkable. IMPRESSION: No acute cardiopulmonary disease process. Dictated by: Mckenna Hatch MD, PhD on 02/22/2020 at 8:53 Approved by: Mckenna Hatch MD, PhD on 02/22/2020 at 8:54
--- NOTE | 2020-02-22 06:58 | ED_ITS ---
HPI - Fall <Santana Ferreira DO - Last Filed: 02/22/20 23:31> General Chief Complaint: Fall Stated Complaint: GLF Time Seen by Provider: 02/22/20 06:48 Source: patient and EMS Mode of arrival: EMS Limitations: no limitations History of Present Illness HPI Narrative: 79F former smoker with a history of hypertension, lung cancer and AFib on [place] was out walking her dog this morning when she tripped and fell landing on her left wrist and hip suffering significant pain and obvious deformities. It is unclear if she hit her head or not. She does not have full recall. She denies any headache or neck pain. She denies any chest pain or shortness of breath. Both her wrist and her hip hurt worse with range of motion and improves with rest. EMS transported her and placed her in appropriate splints. She denies any numbness, tingling or weakness. Related Data Home Medications Medication Instructions Recorded Confirmed gabapentin 300 mg PO BID 08/10/19 02/22/20 losartan 50 mg PO BID 08/10/19 02/22/20 metoprolol succinate 50 mg PO DAILY 08/10/19 02/22/20 acetaminophen 325 mg PO Q4-5H PRN 02/22/20 02/22/20 aspirin 81 mg PO DAILY 02/22/20 02/22/20 dexamethasone 2 mg PO DAILY 02/22/20 02/22/20 docusate sodium [Colace] 100 mg PO DAILY 02/22/20 02/22/20 omeprazole 20 mg PO DAILY 02/22/20 02/22/20 Allergies Allergy/AdvReac Type Severity Reaction Status Date / Time amlodipine AdvReac Urinary Verified 08/10/19 10:42 retention carvedilol AdvReac Weakness, Verified 08/10/19 10:42 abdominal pain hydrochlorothiazide AdvReac Hyponatremi Verified 08/10/19 10:42 a Review of Systems <DO Chu Brush Last Filed: 02/22/20 23:31> Constitutional Constitutional: Denies chills, Denies fatigue, Denies fever(s), Denies frequent falls, Denies lethargy and Denies weakness Eyes Eyes: Denies change in vision, Denies eye discharge, Denies irritation and Denies loss of vision ENT Ears, Nose, Mouth, and Throat: Denies change in voice, Denies dizziness, Denies neck pain, Denies sore throat and Denies throat swelling Cardiovascular Cardiovascular: Denies chest pain, Denies irregular heart rhythm, Denies lightheadedness, Denies palpitations, Denies dyspnea, Denies dyspnea on exertion and Denies orthopnea Respiratory Respiratory: Denies cough, Denies dyspnea, Denies dyspnea on exertion and Denies wheezing Gastrointestinal Gastrointestinal: Denies abdominal pain, Denies change in bowel habits, Denies diarrhea, Denies nausea and Denies vomiting Genitourinary Genitourinary: Denies hematuria, Denies flank pain, Denies urinary incontinence and Denies urinary urgency Musculoskeletal Musculoskeletal: Denies back pain, Reports joint swelling, Reports limited range of motion, Denies muscle weakness, Denies neck pain, Denies numbness and Denies tingling Integumentary/Breasts Skin/Breast: Denies pruritus, Denies erythema, Denies rash and Denies wounds Neurologic Neurologic: Denies behavioral changes, Denies confusion, Denies dizziness, Denies frequent falls, Denies loss of vision, Denies numbness, Denies tingling and Denies weakness Psychiatric Psychiatric: Denies anxiety, Denies behavioral changes, Denies confusion, Denies depression, Denies homicidal ideation and Denies suicidal ideation Endocrine Endocrine: Denies fatigue, Denies flushing and Denies palpitations Hematologic/Lymphatic Hematologic/Lymphatic: Denies easy bruising Allergic/Immunologic Allergic/Immunologic: Denies urticaria, Denies throat swelling and Denies wheezing Patient History <Santana Ferreira DO - Last Filed: 02/22/20 23:31> Medical History Afib (Acute ~04/2018) Breast cancer (Acute) Cardiac murmur (Acute) Cardiomyopathy (Acute) Cervical spinal stenosis (Acute) COPD (chronic obstructive pulmonary disease) (Acute) Easy bruisability (Acute) Former smoker (Acute) Glaucoma (Acute ~04/2015) Lumbar degenerative disc disease (Acute) Mitral and aortic valve regurgitation (Acute) Osteopenia (Acute) Osteoporosis (Acute) PMR (polymyalgia rheumatica) (Acute) Pre-diabetes (Acute) Raynaud's syndrome (Acute) SCC (squamous cell carcinoma) (Acute ~2007) Sepsis due to urinary tract infection (Acute 02/07/19) Short-term memory loss (Acute) Surgical History History of appendectomy (Acute) Hx of bilateral cataract extraction (Acute ~2011) Status post Mohs surgery (Acute) Social History household members: none Smoking Status: Former smoker alcohol intake: never substance use type: does not use additional social history: 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 Frail, elderly female in moderate level of discomfort HEAD: Atraumatic. Normocephalic. EYES: Pupils equal round and reactive. Extraocular motions intact. No scleral icterus. No injection or drainage. ENT: Nose without bleeding, purulent drainage. Throat without erythema, tonsillar hypertrophy or exudate. Airway patent. NECK: Trachea midline. Non tender CARDIOVASCULAR: Regular rate and rhythm without murmurs, gallops, or rubs. RESPIRATORY: Clear to auscultation. Breath sounds equal bilaterally. No wheezes, rales, or rhonchi. GASTROINTESTINAL: Abdomen soft, non-tender, nondistended. EXTREMITIES: Pain to palpation of left hip with shortening and external ro tation. This is closed and neurovascularly intact. No pain on palpation of mid femur, knee, ankle or foot. Pain to palpation of left wrist with obvious deformity consistent with distal radius fracture. This is closed and neurovascularly intact. No pain on palpation of left elbow or shoulder. BACK: Nontender without deformity or crepitance. No flank tenderness. NEURO: AOx3. SKIN: No rash or erythema of visible areas Initial Vital Signs Initial Vital Signs: Vital Signs Temperature 96.5 F L 02/22/20 06:35 Pulse Rate 78 02/22/20 06:35 Respiratory Rate 19 02/22/20 06:35 Blood Pressure 243/125 H 02/22/20 06:35 Pulse Oximetry 99 02/22/20 06:35 <Ziggy Cox DO - Last Filed: 02/22/20 09:04> Initial Vital Signs Initial Vital Signs: Vital Signs Temperature 96.5 F L 02/22/20 06:35 Pulse Rate 78 02/22/20 06:35 Respiratory Rate 19 02/22/20 06:35 Blood Pressure 243/125 H 02/22/20 06:35 Pulse Oximetry 99 02/22/20 06:35 <Ziggy Cox DO - Last Filed: 02/22/20 09:04> Orthopedic Splinting/Casting Injury #1: Side: left Upper Extremity Injury Location: wrist Upper Extremity Immobilizer: volar splint Post splinting neuro exam: intact Post splinting vascular exam: intact Placed by: Nursing <Ziggy Cox DO - Last Filed: 02/22/20 09:04> GCS [place] coma scale eye opening: Spontaneous [place] coma scale verbal response: Orientated Matthias coma scale motor response: Obey commands Matthias coma scale total score: 15 Course <Santana Ferreira DO - Last Filed: 02/22/20 23:31> Orders Ordered: Acetaminophen (Tylenol) 650 mg PO Q6HR PRN PRN Reason: Fever/Mild Pain (1-3) Al Hydrox/Mg Hydrox/Simethicone (Maalox Plus) 30 ml PO Q6HR PRN PRN Reason: Dyspepsia Aspirin (Aspirin Ec) 81 mg PO DAILY [facility] Dexamethasone (Decadron) 2 mg PO DAILY [facility] Last Admin: 02/22/20 12:00 Dose: 2 mg Documented by: CHANTALE Docusate Sodium (Colace) 100 mg PO DAILY [facility] Fentanyl (Sublimaze) 25 mcg IV Q1H PRN PRN Reason: Pain, Severe (7-10) Last Admin: 02/22/20 10:34 Dose: 25 mcg Documented by: LEO Gabapentin (Neurontin) 300 mg PO BID [facility] Last Admin: 02/22/20 21:31 Dose: 300 mg Documented by: NESTOR Sodium Chloride (Normal Saline 0.9%) 1,000 mls @ 75 mls/hr IV CONT [facility] Last Admin: 02/22/20 22:44 Dose: 75 mls/hr Documented by: Infusion: 02/22/20 22:44 Dose: 75 mls/hr Documented by: Infusion: 02/22/20 10:27 Dose: 75 mls/hr Documented by: Infusion: 02/22/20 10:15 Dose: 125 mls/hr Documented by: Admin: 02/22/20 08:13 Dose: 125 mls/hr Documented by: JUS Lorazepam (Ativan) 0.5 mg IV Q6HR PRN PRN Reason: Anxiety Lorazepam (Ativan) 0.5 mg PO Q6HR PRN PRN Reason: Anxiety Losartan Potassium (Cozaar) 50 mg PO BID [facility] Last Admin: 02/22/20 21:31 Dose: 50 mg Documented by: Admin: 02/22/20 11:53 Dose: 50 mg Documented by: CHANTALE Magnesium Hydroxide (Milk Of Magnesia) 30 ml PO DAILY PRN PRN Reason: Constipation Metoprolol Succinate (Toprol Xl) 50 mg PO DAILY [facility] Last Admin: 02/22/20 11:54 Dose: 50 mg Documented by: CHANTALE Morphine Sulfate (Morphine) 2 mg IV Q4HR PRN PRN Reason: Pain, Moderate (4-6) Last Admin: 02/22/20 22:44 Dose: 2 mg Documented by: Admin: 02/22/20 17:57 Dose: 2 mg Documented by: Admin: 02/22/20 14:18 Dose: 2 mg Documented by: CHANTALE Naloxone HCl (Narcan) 0.2 mg IV Q2MIN PRN PRN Reason: Opiate Reversal Ondansetron HCl (Zofran) 4 mg IV Q4HR PRN PRN Reason: Nausea And Vomiting Last Admin: 02/22/20 16:10 Dose: 4 mg Documented by: NESTOR Pantoprazole Sodium (Protonix) 20 mg PO 0600 [facility] Sennosides (Senna) 17.2 mg PO BEDTIME [facility] Last Admin: 02/22/20 21:31 Dose: 17.2 mg Documented by: NESTOR Discontinued Medications Fentanyl (Sublimaze) 25 mcg IV NOW ONE Stop: 02/22/20 08:08 Last Admin: 02/22/20 08:13 Dose: 25 mcg Documented by: JUS Fentanyl (Sublimaze) 25 mcg IV NOW ONE Stop: 02/22/20 08:36 Last Admin: 02/22/20 08:45 Dose: 25 mcg Documented by: ALAN Ondansetron HCl (Zofran) 4 mg IV NOW ONE Stop: 02/22/20 09:00 Last Admin: 02/22/20 09:03 Dose: 4 mg Documented by: ALAN Vital Signs Vital signs: Vital Signs - 8 hr 02/22/20 06:35 02/22/20 08:30 Temperature 96.5 F L Pulse Rate 78 79 Respiratory Rate 19 18 Blood Pressure 243/125 H Blood Pressure [Right Arm] 218/125 H Pulse Oximetry 99 99 <Ziggy Gutiérrezarielle, DO - Last Filed: 02/22/20 09:04> Orders Ordered: Acetaminophen (Tylenol) 650 mg PO Q6HR PRN PRN Reason: Fever/Mild Pain (1-3) Al Hydrox/Mg Hydrox/Simethicone (Maalox Plus) 30 ml PO Q6HR PRN PRN Reason: Dyspepsia Aspirin (Aspirin Ec) 81 mg PO DAILY [facility] Dexamethasone (Decadron) 2 mg PO DAILY [facility] Last Admin: 02/22/20 12:00 Dose: 2 mg Documented by: CHANTALE Docusate Sodium (Colace) 100 mg PO DAILY [facility] Fentanyl (Sublimaze) 25 mcg IV Q1H PRN PRN Reason: Pain, Severe (7-10) Last Admin: 02/22/20 10:34 Dose: 25 mcg Documented by: LEO Gabapentin (Neurontin) 300 mg PO BID [facility] Last Admin: 02/22/20 21:31 Dose: 300 mg Documented by: NESTOR Sodium Chloride (Normal Saline 0.9%) 1,000 mls @ 75 mls/hr IV CONT [facility] Last Admin: 02/22/20 22:44 Dose: 75 mls/hr Documented by: Infusion: 02/22/20 22:44 Dose: 75 mls/hr Documented by: Infusion: 02/22/20 10:27 Dose: 75 mls/hr Documented by: Infusion: 02/22/20 10:15 Dose: 125 mls/hr Documented by: Admin: 02/22/20 08:13 Dose: 125 mls/hr Documented by: JUS Lorazepam (Ativan) 0.5 mg IV Q6HR PRN PRN Reason: Anxiety Lorazepam (Ativan) 0.5 mg PO Q6HR PRN PRN Reason: Anxiety Losartan Potassium (Cozaar) 50 mg PO BID [facility] Last Admin: 02/22/20 21:31 Dose: 50 mg Documented by: Admin: 02/22/20 11:53 Dose: 50 mg Documented by: CHANTALE Magnesium Hydroxide (Milk Of Magnesia) 30 ml PO DAILY PRN PRN Reason: Constipation Metoprolol Succinate (Toprol Xl) 50 mg PO DAILY [facility] Last Admin: 02/22/20 11:54 Dose: 50 mg Documented by: CHANTALE Morphine Sulfate (Morphine) 2 mg IV Q4HR PRN PRN Reason: Pain, Moderate (4-6) Last Admin: 02/22/20 22:44 Dose: 2 mg Documented by: Admin: 02/22/20 17:57 Dose: 2 mg Documented by: Admin: 02/22/20 14:18 Dose: 2 mg Documented by: CHANTALE Naloxone HCl (Narcan) 0.2 mg IV Q2MIN PRN PRN Reason: Opiate Reversal Ondansetron HCl (Zofran) 4 mg IV Q4HR PRN PRN Reason: Nausea And Vomiting Last Admin: 02/22/20 16:10 Dose: 4 mg Documented by: NESTOR Pantoprazole Sodium (Protonix) 20 mg PO 0600 [facility] Sennosides (Senna) 17.2 mg PO BEDTIME [facility] Last Admin: 02/22/20 21:31 Dose: 17.2 mg Documented by: NESTOR Discontinued Medications Fentanyl (Sublimaze) 25 mcg IV NOW ONE Stop: 02/22/20 08:08 Last Admin: 02/22/20 08:13 Dose: 25 mcg Documented by: JUS Fentanyl (Sublimaze) 25 mcg IV NOW ONE Stop: 02/22/20 08:36 Last Admin: 02/22/20 08:45 Dose: 25 mcg Documented by: ALAN Ondansetron HCl (Zofran) 4 mg IV NOW ONE Stop: 02/22/20 09:00 Last Admin: 02/22/20 09:03 Dose: 4 mg Documented by: ALAN Vital Signs Vital signs: Vital Signs - 8 hr 02/22/20 06:35 02/22/20 08:30 Temperature 96.5 F L Pulse Rate 78 79 Respiratory Rate 19 18 Blood Pressure 243/125 H Blood Pressure [Right Arm] 218/125 H Pulse Oximetry 99 99 MDM - Fall <Santana Ferreira DO - Last Filed: 02/22/20 23:31> Lab Data Result diagrams: 02/22/20 08:35 02/22/20 10:25 Labs: Lab Results 02/22/20 02/22/20 02/22/20 Range/Units 08:35 08:35 08:35 WBC 13.9 H (4.5-11.0) X10^3/uL RBC 4.87 (4.0-5.2) X10^6/uL Hgb 13.8 (12.0-16.0) g/dL Hct 42.2 (36-46) % MCV 86.8 (80-100) fL MCH 28.2 (26-34) PG MCHC 32.6 (30-36) % RDW 15.5 H (11.6-14.8) % Plt Count 268 (150-400) X10^3/uL Neut % (Auto) 80.5 H (50-75) % Lymph % (Auto) 10.6 L (25-40) % [place] % (Auto) 5.9 (3-14) % Eos % (Auto) 2.0 (2-4) % Baso % (Auto) 1.0 (0-2) % Neut # (Auto) 35539 H (1896-9878) /uL Lymph # (Auto) 1500 (7566-6490) /uL [place] # (Auto) 800 (0-900) /uL Eos # (Auto) 300 (0-450) /uL Baso # (Auto) 100 (0-100) /uL PT 10.3 (10.1-12.7) SECONDS INR 0.9 (0.9-1.3) Sodium 134 L (137-145) mmol/L Potassium 5.7 H (3.4-5.1) mmol/L Chloride 101 (98-107) mmol/L Carbon Dioxide 23 (22-32) mmol/L BUN 31 H (7-17) mg/dL Creatinine 0.70 (0.52-1.04) mg/dL Estimated GFR > 60.0 (>60) mL/min BUN/Creatinine Ratio 44.3 H (6-22) Glucose 143 H (80-110) mg/dL Calcium 9.2 (8.4-10.2) mg/dL <Ziggy Cox DO - Last Filed: 02/22/20 09:04> Lab Data Labs: Lab Results 02/22/20 02/22/20 02/22/20 Range/Units 08:35 08:35 08:35 WBC 13.9 H (4.5-11.0) X10^3/uL RBC 4.87 (4.0-5.2) X10^6/uL Hgb 13.8 (12.0-16.0) g/dL Hct 42.2 (36-46) % MCV 86.8 (80-100) fL MCH 28.2 (26-34) PG MCHC 32.6 (30-36) % RDW 15.5 H (11.6-14.8) % Plt Count 268 (150-400) X10^3/uL Neut % (Auto) 80.5 H (50-75) % Lymph % (Auto) 10.6 L (25-40) % [place] % (Auto) 5.9 (3-14) % Eos % (Auto) 2.0 (2-4) % Baso % (Auto) 1.0 (0-2) % Neut # (Auto) 30729 H (9205-2053) /uL Lymph # (Auto) 1500 (4350-6080) /uL [place] # (Auto) 800 (0-900) /uL Eos # (Auto) 300 (0-450) /uL Baso # (Auto) 100 (0-100) /uL PT 10.3 (10.1-12.7) SECONDS INR 0.9 (0.9-1.3) Sodium 134 L (137-145) mmol/L Potassium 5.7 H (3.4-5.1) mmol/L Chloride 101 (98-107) mmol/L Carbon Dioxide 23 (22-32) mmol/L BUN 31 H (7-17) mg/dL Creatinine 0.70 (0.52-1.04) mg/dL Estimated GFR > 60.0 (>60) mL/min BUN/Creatinine Ratio 44.3 H (6-22) Glucose 143 H (80-110) mg/dL Calcium 9.2 (8.4-10.2) mg/dL Imaging Data CT scan - head: Radiologist's Impression: [address] [address] [address] Scan Report Signed Patient: Michelle RobinsnaMR#: [id number] : 9Acct:[id number] Age/Sex: 79 / FDate of Service: 02/22/20 Loc: ED Accession Number: [id number] Procedure: CT head/brain wo con Ordering Provider: Santana Ferreira D.O. PROCEDURE: CT HEAD/BRAIN WO CON INDICATIONS: fall with head injury on eliquis TECHNIQUE: Noncontrast 4.5 mm thick angled axial sections acquired from the foramen magnum to the vertex, with coronal and sagittal reformats. For radiation dose reduction, the following was used: automated exposure control, adjustment of mA and/or kV according to patient size. COMPARISON: None. FINDINGS: Image quality: Excellent. CSF spaces: Basal cisterns are patent. No extra-axial fluid collections. The ventricles are symmetric in size and shape. Brain: No intracranial bleeds or masses. There is moderate cerebral volume loss for age, with resultant ventricular and sulcal prominence. There are severe periventricular and deep white matter chronic small vessel ischemic changes. There is intracranial internal carotid artery atherosclerosis. Skull and face: Calvarium and visualized facial bones appear intact, without suspicious lesions. Sinuses: Visualized sinuses and mastoids are clear. IMPRESSION: No acute intracranial disease process. Dictated by: Mckenna Hatch MD, PhD on 02/22/2020 at 7:58 Approved by: Mckenna Hatch MD, PhD on 02/22/2020 at 8:01 Extremity x-ray #1: Radiologist's Impression: [place] [address] XRay Report Signed Patient: Michelle RobinsnaMR#: [id number] : 9Acct:[id number] Age/Sex: 79 / FDate of Service: 02/22/20 Loc: ED Accession Number: [id number] Procedure: XR elbow LT 2V Ordering Provider: Ziggy Cox D.O. PROCEDURE: XR ELBOW LT 2V INDICATIONS: distal radius fracture TECHNIQUE: 2 views of the elbow were acquired. [facility] 7:00. FINDINGS: Bones: No fractures or dislocations. No suspicious bony lesions. Soft tissues: No elbow joint effusion. No suspicious soft tissue calcifications. IMPRESSION: No trauma at the elbow joint level is found. The patient has a distal radius fracture and also ulnar styloid process fracture documented earlier today. Dictated by: Bryce Velez M.D. on 02/22/2020 at 8:21 Approved by: Bryce Velez M.D. on 02/22/2020 at 8:22 Chest x-ray: Radiologist's Impression: [address] [address] XRay Report Signed Patient: Michelle RobinsnaMR#: [id number] : 9Acct:[id number] Age/Sex: 79 / FDate of Service: 02/22/20 Loc: ED Accession Number: [id number] Procedure: XR chest 1V Ordering Provider: Santana Ferreira D.O. PROCEDURE: XR CHEST 1V INDICATIONS: fall, trauma, preop TECHNIQUE: One view of the chest was acquired. COMPARISON: [facility], CHEST 2 VIEW, 12/24/2011, 12:49. FINDINGS: Surgical changes and devices: None. Lungs and pleura: Lungs are clear. No pleural effusions or pneumothorax. Lungs are hyperinflated suggesting COPD. Mediastinum: Mediastinal contours appear normal. Heart size is normal. Bones and chest wall: No suspicious bony lesions. Overlying soft tissues appear unremarkable. IMPRESSION: No acute cardiopulmonary disease process. Dictated by: Mckenna Hatch MD, PhD on 02/22/2020 at 8:53 Approved by: Mckenna Hatch MD, PhD on 02/22/2020 at 8:54 Extremity x-ray #2: Radiologist's Impression: [address] [address] XRay Report Signed Patient: Michelle RobnisnaMR#: [id number] : 9Acct:[id number] Age/Sex: 79 / FDate of Service: 02/22/20 Loc: ED Accession Number: [id number] Procedure: XR wrist LT 2V Ordering Provider: Santana Ferriera D.O. PROCEDURE: XR WRIST LT 2V INDICATIONS: obvious deformity TECHNIQUE: A 2 views of the wrist were acquired. COMPARISON: None. FINDINGS: Bones: Comminuted, intra-articular, displaced and angulated distal radius fracture. Displaced ulnar styloid process fracture. No suspicious bony lesions. Radiocarpal, triscaphe and first CMC joint osteoarthritis. Scaphoid view: Not requested. Soft tissues: No suspicious soft tissue calcifications. IMPRESSION: 1. Comminuted, intra-articular distal radius fracture. 2. Displaced ulnar styloid process fracture. Dictated by: Mckenna Hatch MD, PhD on 02/22/2020 at 8:52 Approved by: Mckenna Hatch MD, PhD on 02/22/2020 at 8:53 Extremity x-ray #3: Radiologist's Impression: Annamarie Robins 79 F [address] [address] XRay Report Signed Patient: Michelle RobinsnaMR#: [id number] : 1940cct:[id number] Age/Sex: 79 / FDate of Service: 02/22/20 Loc: ED Accession Number: [id number] Procedure: XR hip w pel if done LT 2V Ordering Provider: Santana Ferreira D.O. PROCEDURE: XR HIP W PEL IF DONE LT 2V INDICATIONS: ground level fall TECHNIQUE: AP pelvis with lateral view(s) of the left hip(s). COMPARISON: None. FINDINGS: Bones: Displaced and varus angulated intertrochanteric left femur fracture. Pelvic ring appears intact. No suspicious bony lesions. Soft tissues: The visualized bowel gas pattern is normal. No suspicious soft tissue calcifications. IMPRESSION: Intertrochanteric proximal left femur fracture. Dictated by: Mckenna Hatch MD, PhD on 02/22/2020 at 8:55 Approved by: Mckenna Hatch MD, PhD on 02/22/2020 at 8:56 MDM Narrative Medical decision making narrative: Dr cox: Received turned over from Dr Ferreira. Reviewed patient's history and physical and also radiologic studies. Patient has a GCS of 15. Head CT shows no signs of bleeding. Has a proximal left radius fracture and ulnar styloid fracture. This was placed in a volar splint for comfort. Patient also has a left intertrochanteric hip fracture. The hospice nurse was here in the emergency department. Did discuss the case with Dr. Duarte who will come and evaluate the patient. Also discussed the case with Dr. Gallegos who will admit. Discussed this with the patient. She expressed understanding and agreement. Discharge Plan Departure Patient Disposition: Admitted As Inpatient Clinical Impression: Closed fracture of left distal radius Qualifiers: Encounter type: initial encounter Fracture morphology: unspecified fracture morphology Qualified Code(s): S52.502A - Unspecified fracture of the lower end of left radius, initial encounter for closed fracture Fracture of femoral neck, left, closed Qualifiers: Encounter type: initial encounter Qualified Code(s): S72.002A - Fracture of unspecified part of neck of left femur, initial encounter for closed fracture Hypertension Qualifiers: Hypertension type: unspecified Qualified Code(s): I10 - Essential (primary) hypertension Fracture of ulnar styloid Qualifiers: Encounter type: initial encounter Fracture type: closed Fracture alignment: displaced Laterality: left Qualified Code(s): S52.612A - Displaced fracture of left ulna styloid process, initial encounter for closed fracture Discharge Date/Time: 02/22/20 09:43 Referrals: Amanda Castro MD [Primary Care Provider] - Admit Date/Time: 02/22/20 09:00 Admit Provider: Medardo Gallegos
--- NOTE | 2020-02-22 07:25 | PC.NURSE ---
Placed call to [facility] to inform of patient's arrival to the Emergency department. Nurse stated would get ahold of hospice Dr and he would call back with plan of care.
--- NOTE | 2020-02-22 07:40 | DI.RAD.S_ITS ---
PROCEDURE: XR ELBOW LT 2V INDICATIONS: distal radius fracture TECHNIQUE: 2 views of the elbow were acquired. COMPARISON: [facility], CR, XR WRIST LT 2V, 02/22/2020, 7:00. FINDINGS: Bones: No fractures or dislocations. No suspicious bony lesions. Soft tissues: No elbow joint effusion. No suspicious soft tissue calcifications. IMPRESSION: No trauma at the elbow joint level is found. The patient has a distal radius fracture and also ulnar styloid process fracture documented earlier today. Dictated by: Bryce Velez M.D. on 02/22/2020 at 8:21 Approved by: Bryce Velez M.D. on 02/22/2020 at 8:22
--- NOTE | 2020-02-22 07:52 | DI.CT.S_ITS ---
PROCEDURE: CT HEAD/BRAIN WO CON INDICATIONS: fall with head injury on eliquis TECHNIQUE: Noncontrast 4.5 mm thick angled axial sections acquired from the foramen magnum to the vertex, with coronal and sagittal reformats. For radiation dose reduction, the following was used: automated exposure control, adjustment of mA and/or kV according to patient size. COMPARISON: None. FINDINGS: Image quality: Excellent. CSF spaces: Basal cisterns are patent. No extra-axial fluid collections. The ventricles are symmetric in size and shape. Brain: No intracranial bleeds or masses. There is moderate cerebral volume loss for age, with resultant ventricular and sulcal prominence. There are severe periventricular and deep white matter chronic small vessel ischemic changes. There is intracranial internal carotid artery atherosclerosis. Skull and face: Calvarium and visualized facial bones appear intact, without suspicious lesions. Sinuses: Visualized sinuses and mastoids are clear. IMPRESSION: No acute intracranial disease process. Dictated by: Mckenna Hatch MD, PhD on 02/22/2020 at 7:58 Approved by: Mckenna Hatch MD, PhD on 02/22/2020 at 8:01
[2020-02-22] MEDS: SODIUM CHLORIDE 0.9% 1,000 ML 125 ML IV (08:13)
[2020-02-22] MEDS: fentaNYL 100 MCG/2 ML INJ 25 MCG IV ×3 (08:13→10:34)
[2020-02-22 08:48] LABS: Add Manual Diff / Slide Review NO; Basophils Absolute Auto 100 /uL (0-100); Eosinophils Absolute Auto 300 /uL (0-450); Hematocrit 42.2 % (36-46); Hemoglobin 13.8 g/dL (12.0-16.0); Lymphocytes Absolute Auto 1500 /uL (1100-4500); Lymphocytes Percent Auto 10.6 % (25-40); Mean Corpuscular HGB Conc 32.6 % (30-36); Mean Corpuscular Hemoglobin 28.2 PG (26-34); Mean Corpuscular Volume 86.8 fL (80-100); Monocytes Absolute Auto 800 /uL (0-900); Monocytes Percent Auto 5.9 % (3-14); Neutrophils Absolute Auto 11200 /uL (1500-7000); Neutrophils Percent Auto 80.5 % (50-75); Platelet Count 268 X10^3/uL (150-400); Red Blood Cell Count 4.87 X10^6/uL (4.0-5.2); Red Cell Distribution Width 15.5 % (11.6-14.8); White Blood Cell Count 13.9 X10^3/uL (4.5-11.0)
[2020-02-22 08:54] LABS: INR 0.9 (0.9-1.3); Prothrombin Time 10.3 SECONDS (10.1-12.7)
[2020-02-22] MEDS: ONDANSETRON 4 MG/2 ML INJ IV ×2 (09:03→16:10)
[2020-02-22 09:09] LABS: BUN Creatinine Ratio 44.3 (6-22); Blood Urea Nitrogen 31 mg/dL (7-17); Calcium 9.2 mg/dL (8.4-10.2); Carbon Dioxide 23 mmol/L (22-32); Chloride 101 mmol/L (98-107); Estimated Glomerular Filt Rate > 60.0 mL/min (>60); Glucose 143 mg/dL (80-110); Sodium 134 mmol/L (137-145)
[2020-02-22 09:12] LABS: HEMOLYSIS 212 (0-50); Potassium 5.7 mmol/L (3.4-5.1)
--- NOTE | 2020-02-22 10:23 | P.HP_ITS ---
History of Present Illness History of Present Illness Date Patient Seen: 02/22/20 Time Patient Seen: 10:00 Chief complaint: GLF Narrative: Patient is an 79-year-old female with advanced stage possible primary breast cancer metastatic to the left axillary lymph nodes, history of chronic atrial fibrillation who was transported by EMS to emergency department after gr ound level fall at home. She is a little bit unclear about how she tripped when I interviewed her but per ER physician note she was out walking her dog this morning when she tripped and fell landing on her left wrist and hip suffering significant pain and obvious deformities. She was unsure if she hit her head or not but head CT was negative. Hip x-ray showed intertrochanteric proximal left femur fracture. Upper extremity x-ray showed comminuted intra-articular distal radius fracture and displaced ulnar styloid process fracture. Patient was recently enrolled in hospice for locally metastatic cancer. She last saw Dr. August Zeng for oncology on 12/11/2019 and had declined breast MRI and sometime after the visit made decision to decline palliative chemotherapy treatment and start hospice instead. She lives independently although recently gave up driving. 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 She does report 5 lb weight loss in the last 2 weeks. She initially presented in May 2019 after she found 2 lumps in her left axilla. Mammogram showed lymph node in left axilla. She had ultrasound-guided biopsy of left axillary lymph nodes on 07/18/2019 which showed metastatic poorly differentiated adenocarcinoma with indeterminate primary site. Cancer cells were negative for ER and SD and HER2. In July 2019 she had surgical excision of palpable left breast mass which was negative for malignancy. In August 2019 she had a PET/CT which showed mild increased uptake in the left breast and multiple hypermetabolic left axillary lymph nodes consistent with metastases but no distal metastases. Patient has of hypertension, cardiomyopathy with reduced LV systolic function, chronic AFib and was taken off of Eliquis earlier this year and started on low- dose aspirin instead. She has no history of CAD or CO. An echo on 10/26/2018 showed decreased LV systolic function with LVEF 35-45%, moderate global hypokinesis, moderate MR, mild to moderate TR unchanged from last echo. She has not required diuretic therapy for her cardiomyopathy. She is a former smoker and carries diagnosis of COPD but it does not appear she has needed inhalers. She denies chest pain or dyspnea. Patient History Medical History Afib (Acute ~04/2018) Breast cancer (Acute) Cardiac murmur (Acute) Cardiomyopathy (Acute) Cervical spinal stenosis (Acute) COPD (chronic obstructive pulmonary disease) (Acute) Easy bruisability (Acute) Former smoker (Acute) Glaucoma (Acute ~04/2015) Lumbar degenerative disc disease (Acute) Mitral and aortic valve regurgitation (Acute) Osteopenia (Acute) Osteoporosis (Acute) PMR (polymyalgia rheumatica) (Acute) Pre-diabetes (Acute) Raynaud's syndrome (Acute) SCC (squamous cell carcinoma) (Acute ~2007) Sepsis due to urinary tract infection (Acute 02/07/19) Short-term memory loss (Acute) Surgical History History of appendectomy (Acute) Hx of bilateral cataract extraction (Acute ~2011) Status post Mohs surgery (Acute) Family & Social History Social History: household members none Safety & Behavioral: Feels Safe in Current Yes Environment Tobacco & Substance use: Tobacco type cigarettes Smoking Status Former smoker alcohol intake never Substance Use Type does not use Meds Home Medications and Allergies Home Medications Medication Instructions Recorded Confirmed Type gabapentin 300 mg PO BID 08/10/19 02/22/20 History losartan 50 mg PO BID 08/10/19 02/22/20 History metoprolol succinate 50 mg PO DAILY 08/10/19 02/22/20 History acetaminophen 325 mg PO Q4-5H PRN 02/22/20 02/22/20 History aspirin 81 mg PO DAILY 02/22/20 02/22/20 History dexamethasone 2 mg PO DAILY 02/22/20 02/22/20 History docusate sodium [Colace] 100 mg PO DAILY 02/22/20 02/22/20 History omeprazole 20 mg PO DAILY 02/22/20 02/22/20 History Allergies Allergy/AdvReac Type Severity Reaction Status Date / Time amlodipine AdvReac Urinary Verified 08/10/19 10:42 retention carvedilol AdvReac Weakness, Verified 08/10/19 10:42 abdominal pain hydrochlorothiazide AdvReac Hyponatremi Verified 08/10/19 10:42 a Review of Systems Review of Systems ROS: Yes All systems reviewed with the patient and are negative except as otherwise documented Exam Vital Signs (past 8 hours): - 02/22/20 06:35 02/22/20 08:30 02/22/20 09:36 Temperature 96.5 F L Pulse Rate 78 79 86 Respiratory Rate 19 18 16 Blood Pressure 243/125 H Blood Pressure [Right Arm] 218/125 H 206/108 H Pulse Oximetry 99 99 98 Oxygen Delivery Method Room Air Narrative Exam Narrative: GENERAL: Thin alert elderly female in at least moderate discomfort HEAD: Atraumatic. Normocephalic. EYES: Pupils equal, round and reactive. Extraocular motions intact. No scleral icterus. OROPHARYNX: Dry oral mucosa NECK: Trachea midline. No JVD or lymphadenopathy. CARDIOVASCULAR: Normal S1 and S2, irregularly irregular rhythm, no murmur RESPIRATORY: Clear to auscultation bilaterally. GASTROINTESTINAL: Abdomen superficial rigidity. No hepato-splenomegaly, no palpable mass. EXTREMITIES: No pretibial edema. The left arm is in a splint. The left leg is externally rotated. She has intact light touch distally. Unable to palpate pulses in feet. NEUROLOGICAL: Alert, oriented to person and place SKIN: warm, dry, no rash or bruise Objective Labs Result Diagrams: 02/22/20 08:35 02/22/20 08:35 Labs: Laboratory Results - last 24 hr 02/22/20 02/22/20 02/22/20 08:35 08:35 08:35 WBC 13.9 H RBC 4.87 Hgb 13.8 Hct 42.2 MCV 86.8 MCH 28.2 MCHC 32.6 RDW 15.5 H Plt Count 268 Neut % (Auto) 80.5 H Lymph % (Auto) 10.6 L [place] % (Auto) 5.9 Eos % (Auto) 2.0 Baso % (Auto) 1.0 Neut # (Auto) 37540 H Lymph # (Auto) 1500 [place] # (Auto) 800 Eos # (Auto) 300 Baso # (Auto) 100 PT 10.3 INR 0.9 Sodium 134 L Potassium 5.7 H Chloride 101 Carbon Dioxide 23 BUN 31 H Creatinine 0.70 Estimated GFR > 60.0 BUN/Creatinine Ratio 44.3 H Glucose 143 H Calcium 9.2 Assessment & Plan Assessment & Plan narrative: Patient is 79-year-old female with locally metastatic likely primary breast cancer, in hospice until this admission, chronic atrial fibrillation, cardiomyopathy with reduced LVEF, hypertension admitted due to left hip and left wrist fracture status post ground level fall. 1. Acute left hip fracture, present on admission, active -x-ray showed intertrochanteric proximal left femur fracture -Dr. Marlon Duarte consulting for orthopedic surgery -patient has fairly good performance status in spite of diagnosis of metastatic cancer, Karn[place]sky is 79 and ECOG is 1, and she may benefit from operative repair of her hip fracture. She did not have any distal metastases on her PET-CT scan in August 2019. -patient is awaiting to talk to Dr. Duarte to make final decision on whether to proceed to surgery, she will likely require rehab at shelter facility with combination of both hip fracture and wrist fracture -NPO until evaluated by ortho -maintenance IVF: NS at 75 cc/hour -fentanyl 25 mcg IV q.1 hour as needed 2. Acute left wrist fracture, present on admission, active -x-ray showed fracture of distal radius and ulnar styloid process -splinted in the ED 3. Chronic atrial fibrillation, present on admission, active -continue metoprolol succinate 50 mg daily and aspirin 81 mg daily 4. History of cardiomyopathy with reduced LVEF, present on admission, active -appears asymptomatic and has not required diuretics -continue losartan 50 mg b.i.d. and metoprolol succinate 50 mg daily 5. Locally metastatic cancer, likely breast primary, present on admission -hospice discontinued for this admission -continue dexamethasone 2 mg daily 6. Hypertension, present on admission, chronic -severe elevated BP 218/125 in ED due to pain -provide patient her routine morning BP medications Code status: DNR
[2020-02-22 11:08] LABS: HEMOLYSIS < 15 (0-50); Potassium 3.9 mmol/L (3.4-5.1)
[2020-02-22] MEDS: LOSARTAN 50 MG TABLET PO ×2 (11:53→21:31)
[2020-02-22] MEDS: METOPROLOL ER 50 MG TABLET PO (11:54)
[2020-02-22] MEDS: dexAMETHasone 1 MG TABLET 2 MG PO (12:00)
[2020-02-22 12:50] LABS: Bacteria Urine None Seen; RBC Urine None Seen (0-5/HPF)
[2020-02-22 12:51] LABS: Appearance Urine UA CLEAR; Bilirubin Urine UA NEGATIVE (NEGATIVE); Color Urine UA YELLOW; Glucose Urine UA NEGATIVE (Negative); Ketones Urine UA NEGATIVE (NEGATIVE); Leukocyte Esterase Urine UA NEGATIVE (NEGATIVE); Nitrite Urine UA NEGATIVE (Negative); Occult Blood Urine UA NEGATIVE (Negative); Protein Urine UA NEGATIVE (Negative); Urobilinogen Urine UA 0.2 E.U./dL (0.2)
[2020-02-22 13:03] LABS: Amorphous Sediment Urine 1+; Squamous Epithelial Cell Urine 0-1 /HPF (0-5/HPF); WBC Urine 0-1/HPF (0-5/HPF); pH Urine UA 7.5 (4.5-8.0)
[2020-02-22 13:04] LABS: Culture Indicated Urine Cult Not Indicated
--- NOTE | 2020-02-22 13:45 | PC.NURSE ---
Addendum entered by Barbara Hughes R.N. 02/22/20 14:54: Dr. Duarte at bedside with Abril RAMÍREZ. Original Note: Admit note: Patient admitted to room 208 from ED, required to be transferred from [facility] to bed via slider board. Pain at rest 3/10 to left arm and left lower extremity, with activity 9/10. Alert, oriented and very pleasant. IVF initiated, NPO status. Awaiting for Ortho consult. Dr. Gallegos at bedside. Oriented to room, environment, and plan of care. High fall risk precautions, call light within reach.
--- NOTE | 2020-02-22 14:14 | PM.CN ---
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 She is on hospice for a diagnosis of locally metastatic cancer with a presumed breast primary. She has recently been losing weight. By report of her caregivers she is at baseline a marginal ambulator who uses furniture as support to get around her condominium. She has no local family support. She got up and attempted to navigate in the dark this morning and suffered a fall injuring her left hip and wrist. She was taken to [facility] Emergency room where radiographs revealed an intertrochanteric left hip fracture and a displaced left distal radius fracture. Orthopedic consultation has been obtained to definitively treat the fractures. Meds Home Medications and Allergies Home Medications Medication Instructions Recorded Confirmed Type gabapentin 300 mg PO BID 08/10/19 02/22/20 History losartan 50 mg PO BID 08/10/19 02/22/20 History metoprolol succinate 50 mg PO DAILY 08/10/19 02/22/20 History acetaminophen 325 mg PO Q4-5H PRN 02/22/20 02/22/20 History aspirin 81 mg PO DAILY 02/22/20 02/22/20 History dexamethasone 2 mg PO DAILY 02/22/20 02/22/20 History docusate sodium [Colace] 100 mg PO DAILY 02/22/20 02/22/20 History omeprazole 20 mg PO DAILY 02/22/20 02/22/20 History Allergies Allergy/AdvReac Type Severity Reaction Status Date / Time amlodipine AdvReac Urinary Verified 08/10/19 10:42 retention carvedilol AdvReac Weakness, Verified 08/10/19 10:42 abdominal pain hydrochlorothiazide AdvReac Hyponatremi Verified 08/10/19 10:42 a Review of Systems Review of Systems ROS: Yes All systems reviewed with the patient and are negative except as otherwise documented Exam Vital Signs (past 8 hours): - 02/22/20 06:35 02/22/20 08:30 02/22/20 09:36 Temperature 96.5 F L Pulse Rate 78 79 86 Respiratory Rate 19 18 16 Blood Pressure 243/125 H Blood Pressure [Right Arm] 218/125 H 206/108 H Pulse Oximetry 99 99 98 02/22/20 10:30 02/22/20 11:17 02/22/20 11:40 Temperature 96.9 F L Pulse Rate 86 84 Respiratory Rate 18 Blood Pressure 162/115 H 175/94 H Blood Pressure [Right Arm] Pulse Oximetry 98 98 02/22/20 11:53 02/22/20 11:54 Temperature Pulse Rate 88 88 Respiratory Rate Blood Pressure 175/94 H 175/94 H Blood Pressure [Right Arm] Pulse Oximetry Oxygen Delivery Method Room Air Oxygen Flow Rate 0 Narrative Exam Narrative: The patient is seen lying in bed with obvious discomfort when she attempts to move. There is a splint on her left wrist with intact light touch distally. Any motion of the left hip is painful. She appears to have intact light touch distally in the left lower extremity. Objective Labs Result Diagrams: 02/22/20 08:35 02/22/20 10:25 Labs: Laboratory Results - last 24 hr 02/22/20 02/22/20 02/22/20 08:35 08:35 08:35 WBC 13.9 H RBC 4.87 Hgb 13.8 Hct 42.2 MCV 86.8 MCH 28.2 MCHC 32.6 RDW 15.5 H Plt Count 268 Neut % (Auto) 80.5 H Lymph % (Auto) 10.6 L [place] % (Auto) 5.9 Eos % (Auto) 2.0 Baso % (Auto) 1.0 Neut # (Auto) 88046 H Lymph # (Auto) 1500 [place] # (Auto) 800 Eos # (Auto) 300 Baso # (Auto) 100 PT 10.3 INR 0.9 Sodium 134 L Potassium 5.7 H Chloride 101 Carbon Dioxide 23 BUN 31 H Creatinine 0.70 Estimated GFR > 60.0 BUN/Creatinine Ratio 44.3 H Glucose 143 H Calcium 9.2 Urine Color Urine Appearance Urine pH Ur Specific [place] Urine Protein Urine Glucose (UA) Urine Ketones Urine Occult Blood Urine Nitrate Urine Bilirubin Urine Urobilinogen Ur Leukocyte Esterase Urine RBC Urine WBC Ur Squamous Epith Cells Amorphous Sediment Urine Bacteria Ur Culture Indicated? 02/22/20 02/22/20 10:05 10:25 WBC RBC Hgb Hct MCV MCH MCHC RDW Plt Count Neut % (Auto) Lymph % (Auto) [place] % (Auto) Eos % (Auto) Baso % (Auto) Neut # (Auto) Lymph # (Auto) [place] # (Auto) Eos # (Auto) Baso # (Auto) PT INR Sodium Potassium 3.9 D Chloride Carbon Dioxide BUN Creatinine Estimated GFR BUN/Creatinine Ratio Glucose Calcium Urine Color Yellow Urine Appearance Clear Urine pH 7.5 Ur Specific [place] 1.020 Urine Protein Negative Urine Glucose (UA) Negative Urine Ketones Negative Urine Occult Blood Negative Urine Nitrate Negative Urine Bilirubin Negative Urine Urobilinogen 0.2 Ur Leukocyte Esterase Negative Urine RBC None seen Urine WBC 0-1/hpf Ur Squamous Epith Cells 0-1 /hpf Amorphous Sediment 1+ Urine Bacteria None seen Ur Culture Indicated? Cult not indicated Radiographs: Radiographs reveal a comminuted left intertrochanteric hip fracture and a dorsally displaced angulated distal radius fracture. Assessment & Plan Assessment & Plan narrative: The patient is an 79-year-old female who was previously on hospice for non treated breast cancer. She is a marginal ambulator at baseline. To treat this surgically would require a dynamic hip screw for the left proximal femoral fracture and closed reduction and percutaneous pinning of the left wrist. It is unlikely she would return to immediate ambulation as we would likely have to protect the femur fracture from weight-bearing and she will not be allowed to weight bear on the left upper extremity, precluding the use of a walker. Non operative options include possible comfort care. MAGDA White and I did a combined discussion with the patient to present both surgical and palliative options. I have also discussed her care with her hospice physician, Dr. Adilene Quintero, who feels that hospice would likely be able to provide care either in the patient's home environment or in an adult family facility avoiding the use of a senior living facility. A senior living facility would almost undoubtedly be necessary after surgical treatment. I should also note I discussed this patient with the Ethics Committee, in view of the pending ?surge? of rodriguez virus cases and the need to protect our stock of personal protective equipment. After extensive discussion, it was decided that patient autonomy was the guiding factor here and that surgery should be performed if the patient elected to proceed. At this point the patient is still deciding what her choice will be. I will give her food for the evening, keep her NPO after midnight and address this with her tomorrow morning on rounds. Time Spent With Patient Time with patient: Greater than 35 minutes
[2020-02-22] MEDS: MORPHINE 2 MG/ML INJ IV ×3 (14:18→22:44)
[2020-02-22] MEDS: GABAPENTIN 300 MG CAPSULE PO (21:31)
[2020-02-22] MEDS: SENNOSIDES 8.6 MG TABLET 17.2 MG PO (21:31)
[2020-02-22] MEDS: SODIUM CHLORIDE 0.9% 1,000 ML 75 ML IV (22:44)
[2020-02-23] VITALS (11 sets, daily range): BP systolic 115–142; BP diastolic 76–91; PULSE 82–114; RESP 15–20; TEMP 36.4–36.8; O2SAT 94–96
--- NOTE | 2020-02-23 01:19 | PC.NURSE ---
Addendum entered by Erna Salinas R.N. 02/23/20 05:22: Responded to pt spilling coffee on floor. pt confused at what time it is and staff reoriented her to the time; pt responded with Oh, I thought it was 3 in the afternoon. pt started moaning and yelled out when repositioned lower extremities. I asked if she would like some pain medications, at which pt agreed. I administered 650mg Tylenol for pain to right knee and wrist. pt stated her leg hurt the most. Sheets and pillow case had to be replaced from coffee spill. Original Note: NOC Shift. pt alert and needs some assistance with orientation when waking up but orients easily. Reporting pain to left wrist and greater pain to left knee. Expressing concerns for her pets and that they ran away and concerned. Barnes draining to gravity and secure. NS infusing 75/hr and tolerating well. I assisted with repositioning in bed. pt reporting a history of breast cancer to left breast with only a nodule removed and also declining surgery on wrist that is scheduled for tomorrow.
--- NOTE | 2020-02-23 01:49 | PM.CN.PC.1 ---
History of Present Illness Consult details Date Patient Seen: 02/22/20 Time Patient Seen: 01:15 Chief complaint: GLF Reason for consult: Palliative Medicine Consutation Requesting provider: Jaydon Duarte Narrative: Reason for Consultation: Palliative medicine consultation received from Dr. Duarte regarding this unfortunate 79F, Annamarie Robins, who revoked her Hospice Medicare Benefit today to be evaluated in the ED s/p GLF in the home in the early hours of this morning. Patient reports that she was getting out of bed and slipped, stating that her carpet is slippery. This conflicts with statements made in the ED, where she reports she tripped and fell while walking her dog this morning. She fell and landed on her left wrist and hip, and immediately experienced significant pain and noted a left wrist deformity. Hip x-ray revealing of intertrochanteric proximal left femur fracture. Left upper extremity x-ray showed comminuted intra-articular distal radius fracture and displaced ulnar styloid process fracture. CT head negative. CXR negative for acute abnormality, reveals underlying COPD. Dr. Duarte has admitted the patient for evaluation of her distal radial fracture/displaced ulnar styloid process fracture and her proximal left femur fracture. He has requested palliative medicine consultation to help the patient understand all of her options for treatment, including surgical interventions with discharge to a SNF for skilled aggressive, rehabilitative therapies, versus discharge to a SNF for these therapies without undergoing surgery. In his opinion, these are her best options for discharge, though he is aware that the [facility] hospice agency has expressed their willingness to care for the patient in her condo, should she choose to forego the recommended surgical procedures. Past Medical History: Malignant neoplasm of the left breast (core biopsy revealing triple negative poorly differentiated carcinoma with indeterminate primary site), hypertension, cardiomyopathy with reduced LV systolic function, COPD with baseline dyspnea at rest, chronic AFib (anticoagulation discontinued when enrolled in hospice care, uses low-dose aspirin for anticoagulation). Echo on 10/26/2018 revealed decreased LV systolic function with LVEF 35-45%, moderate global hypokinesis, moderate MR, mild to moderate TR, unchanged from last echo. Social History: Patient was up until admission to [facility] enrolled in hospice for locally metastatic breast cancer. She last saw Dr. August Zeng for oncology consultation and ultimately chose to forego the treatment options she was provided, electing to engage [facility] for end of life care. She does live independently in a condo and does not have any family locally, and her H&P indicates she recently gave up driving. She has a friend who serves as her emergency contact Nadira Julien . She has no family locally, stating that she does have a sister who lives in their [place]. She has become close with her hospice team and states that she trusts them to help her make medical decisions. TC to the hospice director of medical staff services to discuss her case. Dr. Adilene Quintero reports that their experience with Ms. Robins has validated her resistance to healthcare people, and her reluctance to adhere to aggressive therapies for her cancer. States that the patient's PPS was 50% prior to her fall, and that she was able to ambulate in her apartment, though she is described as a furniture surfer by the team. Also reports that the patient has suffered an unintentional weight loss of >/=5-7lbs over the past month, but her ability to dress, bathe, and walk her dog was preserved. Chief Complaint: Patient c/o pain in the left wrist that waxes and wanes in intensity, sometimes crying out in pain during our visit together today. Movement exacerbates the pain. She has received a dose of Fentanyl this morning, she is unsure if this relieved her pain very well. As intense as the pain in her wrist is at times, the patient's biggest concern is her anxiety. She states she is unable to close my eyes without having a panic feeling, which exacerbates her baseline shortness of breath. She states that she uses a medication at home that the hospice team has provided, but does not remember the name of it, whenever she feels anxious. Reason for consultation Because of the patient's profound general decline in clinical status over months, frailty evident by weakness, frequent falls, new inability to provide of adequate self care, severe malnutrition (unintentional weight loss, fatigue) and given the presence of an underlying, incurable medical illness, the medical team is of the belief that life expectancy is limited to weeks to months, and has requested clarification of this unfortunate woman's specific medical goals. Reason for consultation Attending physician has requested palliative medicine to assist in furthering conversation with patient and family regarding the complex and sensitive medical issues of the perceived benefits/burdens of continued life prolonging treatments, realistic prognosis, perspectives on and dying, priority in clinical care and burden of physical, emotional and spiritual symptoms for patient and family. I have reviewed the medical record, radiographs, diagnostics, attempted to interview the patient (disoriented, no registration) and subsequently interviewed the patient DPOAHC. The following aspects are pertinent, current and remote medical history, social/emotional and family dynamics, current medications and effects, ROS, examination findings, prognosis, care planning, goal setting. Meds Home Medications and Allergies Home Medications Medication Instructions Recorded Confirmed Type gabapentin 300 mg PO BID 08/10/19 02/22/20 History losartan 50 mg PO BID 08/10/19 02/22/20 History metoprolol succinate 50 mg PO DAILY 08/10/19 02/22/20 History acetaminophen 325 mg PO Q4-5H PRN 02/22/20 02/22/20 History aspirin 81 mg PO DAILY 02/22/20 02/22/20 History dexamethasone 2 mg PO DAILY 02/22/20 02/22/20 History docusate sodium [Colace] 100 mg PO DAILY 02/22/20 02/22/20 History omeprazole 20 mg PO DAILY 02/22/20 02/22/20 History Allergies Allergy/AdvReac Type Severity Reaction Status Date / Time amlodipine AdvReac Urinary Verified 08/10/19 10:42 retention carvedilol AdvReac Weakness, Verified 08/10/19 10:42 abdominal pain hydrochlorothiazide AdvReac Hyponatremi Verified 08/10/19 10:42 a Review of Systems Review of Systems ROS: Yes All systems reviewed with the patient and are negative except as otherwise documented Exam Vital Signs (past 8 hours): - 02/22/20 20:00 02/22/20 20:05 02/22/20 23:45 Temperature 97.6 F 98.3 F Pulse Rate 90 79 Respiratory Rate 14 15 Blood Pressure 141/96 H 133/69 Pulse Oximetry 98 96 97 02/23/20 00:00 Temperature Pulse Rate Respiratory Rate Blood Pressure Pulse Oximetry 96 Oxygen Delivery Method Room Air Oxygen Flow Rate 0 Narrative Exam Narrative: Frail, cachectic, elderly appearing 79F appears engulfed by the hospital bed mattress. She is dyspneic at rest and reports she feels hot, and anxious. Left hand and arm are splinted. Pillow noted between legs. Patient intermittently grimaces and shifts her left arm, attempting to reposition for comfort. Const General: cooperative, No comfortable, anxious, frail appearing and ill appearing (acutely) Nutritional Appearance: cachectic, thin and underweight Orientation: alert, awake and oriented x3 Resp Effort & Inspection: able to speak in complete sentences, uses accessory muscles and other (tachypnea) Psych Appearance: grossly normal and well kempt Mental Status: mental status grossly normal Speech and Movement: speech and movement normal Mood: anxious mood Affect: anxious affect Attitude: cooperative Thought Process: normal Thought Content: normal Judgment: judgment good Objective Labs Result Diagrams: 02/22/20 08:35 02/22/20 10:25 Labs: Laboratory Results - last 24 hr 02/22/20 02/22/20 02/22/20 08:35 08:35 08:35 WBC 13.9 H RBC 4.87 Hgb 13.8 Hct 42.2 MCV 86.8 MCH 28.2 MCHC 32.6 RDW 15.5 H Plt Count 268 Neut % (Auto) 80.5 H Lymph % (Auto) 10.6 L [place] % (Auto) 5.9 Eos % (Auto) 2.0 Baso % (Auto) 1.0 Neut # (Auto) 93397 H Lymph # (Auto) 1500 [place] # (Auto) 800 Eos # (Auto) 300 Baso # (Auto) 100 PT 10.3 INR 0.9 Sodium 134 L Potassium 5.7 H Chloride 101 Carbon Dioxide 23 BUN 31 H Creatinine 0.70 Estimated GFR > 60.0 BUN/Creatinine Ratio 44.3 H Glucose 143 H Calcium 9.2 Urine Color Urine Appearance Urine pH Ur Specific [place] Urine Protein Urine Glucose (UA) Urine Ketones Urine Occult Blood Urine Nitrate Urine Bilirubin Urine Urobilinogen Ur Leukocyte Esterase Urine RBC Urine WBC Ur Squamous Epith Cells Amorphous Sediment Urine Bacteria Ur Culture Indicated? 02/22/20 02/22/20 10:05 10:25 WBC RBC Hgb Hct MCV MCH MCHC RDW Plt Count Neut % (Auto) Lymph % (Auto) [place] % (Auto) Eos % (Auto) Baso % (Auto) Neut # (Auto) Lymph # (Auto) [place] # (Auto) Eos # (Auto) Baso # (Auto) PT INR Sodium Potassium 3.9 D Chloride Carbon Dioxide BUN Creatinine Estimated GFR BUN/Creatinine Ratio Glucose Calcium Urine Color Yellow Urine Appearance Clear Urine pH 7.5 Ur Specific [place] 1.020 Urine Protein Negative Urine Glucose (UA) Negative Urine Ketones Negative Urine Occult Blood Negative Urine Nitrate Negative Urine Bilirubin Negative Urine Urobilinogen 0.2 Ur Leukocyte Esterase Negative Urine RBC None seen Urine WBC 0-1/hpf Ur Squamous Epith Cells 0-1 /hpf Amorphous Sediment 1+ Urine Bacteria None seen Ur Culture Indicated? Cult not indicated Assessment & Recommendations A & R narrative: Discussion: Discussed case with the medical team. Met with patient and Dr. Duarte at the patient's bedside. She is presented with surgical options for care by Dr. Duarte, who describes the surgery itself in detail (plate and pins to hip, external plate with pins to wrist) with a rehabilitation that will consist of months of PT/OT at a local SNF, which is unlikely to allow the patient independence as she declines and ultimately succumbs to her previously diagnosed metastatic, malignant neoplasm of the breast in the coming months. Dr. Duarte makes it very clear that surgery on her hip would be an effort to make her more comfortable with transfers to chair at bedside and back to bed, but will not likely result in her ability to ambulate or be independent again. Compounding her recovery will be her inability to use the left hand during the recovery period, such as for use of a walker. Patient c/o dry mouth, is offered sips of water, and is left to rest and eat lunch. call is placed to collaborate with Dr. Quintero, Organizational Effectiveness Consultant for [facility], with patient's permission. Per Dr. Quintero, the hospice team, who knows her well, report that she places a high value on her independence and will likely choose to come home rather than be placed in a penitentiary, finding her loss of independence intolerable. She has her little dog and a cat that she is concerned about, and the hospice team would like to reassure her that they have arranged for a neighbor to care for them while Ms. Robins is hospitalized. Dr. Quintero expresses the willingness of the hospice agency to take the patient back onto service this weekend, if the patient chooses to do so. They have offered a social science teacher visit to see the patient on Tuesday. Their team believes the patient may have resources to hire private duty caregivers, versus discharge to an Adult Family Home environment with hospice as a secondary plan. UPDATE: Met with patient at bedside. She is watching television and reports that the pain she has experienced in her left wrist is better than it was during our previous visit today. Patient is acutely aware of the COVID-19 outbreak and is watching CNN upon my arrival today. She expresses her reluctance to consider any plan of care that involves a discharge to a facility, which she considers dangerous for her, as many facilities have reported COVID-19 positive patients. 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 She agrees that she has suffered an unintentional, significant weight loss over the last couple of weeks. Patient is again presented with options for care including the surgical and non surgical options that Dr. Duarte has offered previously, as well as the options laid out by Dr. Quintero for end of life care either in her home with hired, private duty caregivers versus in an Adult Family Home, with their hospice agency. Patient is somewhat emotional reflecting on the loss of independence that this fall and resulting fractures have inflicted on her. She states, I wish I could have that hour back to change things. After quite a bit of consideration, the patient expresses her desire at this time to forego surgery in favor of returning home in the care of her trusted hospice team. She expresses concern about the cost of in home private duty caregivers, but feels that arrangements can be made, and is grateful to the hospice team for sending a SW to meet with her tomorrow to start arranging the care. She requests a call be placed to Dr. Duarte to let him know of her decision, is aware that a decision does not need to be made today and that she may take the night to think some more about this decision. Updated Dr. Duarte regarding the outcome of this palliative medicine consultation. Thank you for the opportunity to assist in this patient's plan of care during this hospitalization. We will continue to follow expectantly. Recommendations: - Recommend a benzodiazepine medication order for anxiety as needed - Maintain DNAR in patient's EMR - Ask Hospice team for a copy of the patient's [facility] POL - Referral to [facility] at patient's request Impression: - GLF - Left hip fracture - Left wrist displaced fracture - Metastatic, malignant neoplasm of the breast - Cachexia - Unintentional weight loss - Functional decline - Pain - Dyspnea - Anxiety - Palliative Medicine Consultation Coding: To remain informed regarding current treatment opportunities, provider reviewed extensive additional documentation of multiple treatment providers/facilities which was utilized to update the management plan. Total time in review of additional medical information is 32 minutes, external to in person evaluation. Time in assessment and management of acute and chronic medical diagnoses, pertinent history to palliative medicine decision making, discussion and management of clinical findings enumerated above as well as fears regarding the transition to a more end of life plan and and dying is 58 minutes, more than half of which is necessary for education and counseling. Advanced Care Planning discussion time is 22 minutes. The patient currently lacks testamentary documents for estate planning, DPOAHC but states she has a [facility] POLST and statement of wishes at her condo. Dialogue addresses confirmation of patient preferences at the end/near end of life including resuscitation wishes (no CPR, DNAR). Additional care limits discussed above.
[2020-02-23] MEDS: ACETAMINOPHEN 325 MG TABLET 650 MG PO (04:49)
[2020-02-23] MEDS: PANTOPRAZOLE 20 MG TABLET PO (07:04)
[2020-02-23] MEDS: DOCUSATE 100 MG CAPSULE PO (08:30)
[2020-02-23] MEDS: MORPHINE 2 MG/ML INJ IV (08:30)
[2020-02-23] MEDS: SODIUM CHLORIDE 0.9% 1,000 ML 75 ML IV ×2 (08:30→22:04)
[2020-02-23] MEDS: ASPIRIN EC 81 MG TABLET PO (08:30)
[2020-02-23] MEDS: GABAPENTIN 300 MG CAPSULE PO ×2 (08:30→20:30)
[2020-02-23] MEDS: LOSARTAN 50 MG TABLET PO (08:32)
[2020-02-23] MEDS: METOPROLOL ER 50 MG TABLET PO (08:33)
--- NOTE | 2020-02-23 09:50 | PM.PN.1 ---
Subjective Subjective Date Patient Seen: 02/23/20 Time Patient Seen: 09:50 Interval history: The patient appears more comfortable this morning. She confirms her decision to proceed with comfort care. Exam Vital Signs (past 8 hours): - 02/23/20 04:40 02/23/20 05:00 02/23/20 08:30 Temperature 98.0 F 97.9 F Pulse Rate 87 99 H Respiratory Rate 15 16 Blood Pressure 138/77 137/76 Pulse Oximetry 95 96 94 02/23/20 08:32 02/23/20 08:33 Temperature Pulse Rate 89 86 Respiratory Rate Blood Pressure 137/76 137/76 Pulse Oximetry Oxygen Delivery Method Room Air Oxygen Flow Rate 0 Narrative Exam Narrative: The patient is lying comfortably in bed. There is a splint that appears to be reasonably well-fitting on her left wrist. Objective Labs Result Diagrams: 02/22/20 08:35 02/22/20 10:25 Labs: Laboratory Results - last 24 hr 02/22/20 02/22/20 10:05 10:25 Potassium 3.9 D Urine Color Yellow Urine Appearance Clear Urine pH 7.5 Ur Specific [place] 1.020 Urine Protein Negative Urine Glucose (UA) Negative Urine Ketones Negative Urine Occult Blood Negative Urine Nitrate Negative Urine Bilirubin Negative Urine Urobilinogen 0.2 Ur Leukocyte Esterase Negative Urine RBC None seen Urine WBC 0-1/hpf Ur Squamous Epith Cells 0-1 /hpf Amorphous Sediment 1+ Urine Bacteria None seen Ur Culture Indicated? Cult not indicated Assessment & Plan Assessment & Plan narrative: The patient is stable 1 day status post left intertrochanteric hip fracture and left distal radius fracture. She is under care for terminal metastatic cancer and has been on hospice. After extensive discussion yesterday with myself and with MAGDA White, she has elected to proceed with palliative care. At this point, having confirmed her decision, I will sign off. If she reconsiders her decision and wishes to speak to a surgeon I would be happy to re-consult on the patient. I would recommend changing from the temporary fiberglass splint provided by the emergency room for her wrist to a removable Velcro splint (long enough to extend from the wrist to the proximal forearm) in about 2 weeks. The wrist fracture should remain immobilized for a total of approximately 8 weeks. Time Spent With Patient Time with patient: less than 15 minutes Quality VTE Deep Vein Thrombosis/Pulmonary Embolism Present on Admission: No
[2020-02-23] MEDS: dexAMETHasone 1 MG TABLET 2 MG PO (10:07)
[2020-02-23] MEDS: LORazepam 2 MG/ML INJ 0.5 MG IV (10:14)
--- NOTE | 2020-02-23 11:36 | CM.DANOTE ---
Addendum entered by Maegan Beauchamp LPN 02/23/20 14:17: Met now with pt along with assembly line worker Yamile. Pt was much more alert and admitted it was difficult to think. Periodically she cried out in pain saying, I have broken pieces of bone in me. Let pt know that Dr. Gallegos would like her to go to [facility] along with her hospice team so that she will have the care she needs during this time. She does not disagree and seems to be considering this. Left her talking further with Yamile. Agreed to check in with pt again tomorrow and will continue to work on this plan. Asked pt is there was anyone with whom I could discuss her discharge plan. She was unable to name anyone. Does say that she trusts her Hospice Team. Original Note: Discharge Planning/Care Management DCP: assessment: case received, EMR reviewed and discussed in Team Rounds. Went to room to check in with pt. She was found lying in bed, receiving nursing care and crying out in distress and pain. [facility] to obtain more information about pt. Pt is an 79 year old female who admitted yesterday to care of hospitalist team after a fall resulting in a hip and wrist fracture. She rescinded Hospice so that she could go to the ER for treatment. Consultants: Dr. Duarte from Orthopedics: consulting for fracture management options MAGDA Hahn for a Palliative Care Consultation Payer: Count Includes [facility] Medicare Admission status: INPT: per UR DANNY Crabtree Plan as identified by the providers and pt is for a resumption of [facility] services with care either at home or in a facility like an adult family home. Have faxed clinical documentation to [facility] and have spoken to the on- call dialysis social worker for Hospice: Yamile: [phone]. Yamile explains that pt has been on [facility] services since December 31, 2019 with dx of metastatic breast cancer. Pt has a son from whom she is estranged and a sister in [place]. Pt has been highly resistant to anyone coming into her home and has shown poor insight into planning for future care that she may need as her condition changes and needs increase. She has not wanted to give POA to anyone. Hospice had given pt information to help her get a peoplesoft financial developer set up but pt had not followed through with this yet. She did have a appliance parts counter clerk caregiver paid for privately but in January she let the caregiver go against the advice and concern of her Hospice team. On February 04 her assembly line worker made an APS referral due to her concerns being at home alone. Pt has been getting around in her condo by her self. Has no hospital bed or other DME thus far. Has a neighbor who is caring for her dog and cat, arranged by Hospice staff after pt was admitted to the hospital. Yamile clarifies that there is no team of people in place ready to provide care for pt at home. She says a private caregiver agency would need to be contacted and with the ability to provide 24/7 care. P: shared above info with Dr. Gallegos who now would like to see pt focus on a facility as her care needs will require 24/7 caregivers with pt likely bedbound. Attempted again to talk with pt and again went to her room. Pt has been given IV morphine earlier and then given Ativan as she had been expressing ongoing high anxiety. She did rouse to open her eyes but was unfocused and unable to talk. RN Barbara will update this d/c digital sales planner when pt is a bit more alert. Hospice SW Yamile will be here soon to see pt and collaborate on the POC. In meantime, contacted [facility]: Jenny: [phone] and then spoke with their nurse Meseret with intent to see about a plan for admission to their assisted setting under [facility]. This would provide pt with the privacy she so wishes plus access to 24/7 care including some nursing care. The [facility] is very open to this and could likely have pt set up for admission Tuesday or Tuesday. Will discuss this with pt as able and also with Yamile once she arrives. CM Discharge Assessment Start: 02/23/20 11:34 Freq: Status: Active Protocol: Document 02/23/20 11:34 ITV (Rec: 02/23/20 11:36 ITV [id number]) Discharge Planning Assessment Advance Directives? Yes: does not have at hospital , unable to obtain Advance Directives on File No History Provided By Medical Record Prior Living Arrangements Apartment/Condo Household Members none Community Services used prior to Hospice admission: Whiteboard Updated in Patient Room with Yes name and ext. # of Mill Control Operator Review Status In Process
--- NOTE | 2020-02-23 11:41 | DIET.PN ---
Dietary Progress Note Assessment: 79y F admitted after GLF at home causing wrist and hip fx which pt has elected not to surgically repair. Pt came off hospice from [facility] for admit and will go home on comfort care. Pt referred to nutrition for low MNA, screening for PCM. Pt appears wt stable since 12/11/2019 at 45kg, her BMI is low for age. Concern regarding pt's ability to sit up and feed self r/t hip and wrist fractures at the same time c/o surgical intervention. HT: 157.4cm WT: 45.6kg BMI: 18.4 MNA: 10 at risk for malnutrition Chilo: 16 Interventions: 1. Recc ONS Ensure Enlive once daily to support kcal and PRO needs in case pt's breakthrough px reduces appetite. Diet Order: General EER: 1400kcal (30kcal/kg), 55g PRO
--- NOTE | 2020-02-23 13:14 | PC.NURSE ---
Day shift note: Patient sleeping between care, VSS and afebrile. When awake, she is alert, and oriented to self, place, and situation, does not know time/date. CMS intact to LUE and RLE, deformity and edema noted to left hip region. Refuses ice for comfort. Medicated for pain as ordered with adequate relief. Pain exacerbates with activity and position changes, repositioning for comfort with extra caution to bony prominences and supporting LUE with pillow. LUE with Volar splint/joaquina wrap, fingers pink, warm, and movable. Dr. Duarte in this afternoon to update patient regarding plan of care. Yamile for [facility] to see patient this afternoon. FC to gravity, clear yellow urine draining. High risk precautions in place, bed alarm active, call light within reach. Patient with decreased PO intake, encouraging fluids, no issues with swallowing. Takes PO meds whole, one at a time with sips of water. Calls appropriately for staff assist.
--- NOTE | 2020-02-23 15:59 | P.PN_ITS ---
Subjective Subjective Date Patient Seen: 02/23/20 Interval history: Patient is an 79-year-old female with locally metastatic breast cancer who presented with left hip and wrist fractures after ground level fall at home. Patient was seen by Dr. Duarte for orthopedic consultation as well as Dr. Betzaida Hahn for [facility] ED of medicine consultation. She has elected to forego surgery and resume hospice care. At present time she is intermittently in moderate to severe pain although has not required frequent medication dosing. Exam Vital Signs (past 8 hours): - 02/23/20 08:30 02/23/20 08:32 02/23/20 08:33 Temperature 97.9 F Pulse Rate 99 H 89 86 Respiratory Rate 16 Blood Pressure 137/76 137/76 137/76 Pulse Oximetry 94 02/23/20 12:51 02/23/20 12:52 02/23/20 13:00 Temperature 97.5 F L Pulse Rate 88 82 Respiratory Rate 20 Blood Pressure 136/76 136/76 Pulse Oximetry 96 96 96 Oxygen Delivery Method Room Air Oxygen Flow Rate 0 Narrative Exam Narrative: General: Patient who is sleeping but easily awakened, appropriate and conversant Lungs: Breathing nonlabored Musculoskeletal: Left arm in splint, left leg externally rotated Objective Labs Result Diagrams: 02/22/20 08:35 02/22/20 10:25 Assessment & Plan Assessment & Plan narrative: Patient is an 79-year-old female with locally metastatic breast cancer who presented with left hip and wrist fractures after ground level fall at home. Patient was seen by Dr. Duarte for orthopedic consultation as well as Dr. Betzaida Hahn for [facility] ED of medicine consultation. Since admission, she has elected to forego surgery and resume hospice care. At present time she is intermittently in moderate to severe pain although has not required frequent medication dosing. 1. Acute left hip fracture, secondary to osteoporosis, active -appreciate Ortho consult by Dr. Duarte, ethics consultation team input, and palliative medicine consult with Dr. Betzaida Hahn -patient has elected to forego surgery and resume hospice care -discontinued IV fluids and IV analgesics -oxycodone ER 10 mg b.i.d. -oxycodone IR 5 mg q.3 hours as needed -Barnes catheter may be kept in for comfort 2. Acute left wrist fracture secondary to osteoporosis, active -splinted in the ED 3. Chronic atrial fibrillation, present on admission, active -continue metoprolol succinate 50 mg daily and aspirin 81 mg daily 4. History of cardiomyopathy with reduced LVEF, present on admission, active -appears asymptomatic and has not required diuretics -continue metoprolol succinate 50 mg daily -discontinued losartan as patient will likely end up overmedicated as getting closer to end of life 5. Locally metastatic cancer, likely breast primary, present on admission -hospice was seeing patient prior to this admission -continue dexamethasone 2 mg daily 6. Hypertension, present on admission, chronic -severe elevated BP 218/125 in ED due to pain -continue metoprolol succinate 50 mg q.d. but discontinue losartan, as above 7. Bowel regimen -stool softener, Senokot 2 tablets HS, milk of magnesium as needed Patient is fully agreeable to discharging to assisted living facility under hospice care. I was informed [facility] will be excepting her pending Medicaid authorization. Quality VTE Deep Vein Thrombosis/Pulmonary Embolism Present on Admission: No
[2020-02-23] MEDS: ONDANSETRON 4 MG ODT SL (16:23)
[2020-02-23] MEDS: OXYCODONE IR 5 MG TABLET PO (16:23)
[2020-02-23] MEDS: LORazepam 0.5 MG TABLET PO (20:29)
[2020-02-23] MEDS: OXYCODONE ER 10 MG TAB PO (20:29)
[2020-02-23] MEDS: SENNOSIDES 8.6 MG TABLET 17.2 MG PO (20:29)
--- NOTE | 2020-02-23 21:52 | PC.NURSE ---
Pt is aware that she is in a hospital, she is aware that her L leg is painful, but she does not know the date or time. She has been forgetful (couldn't remember having dinner, getting pain meds, etc.). She has accused staff of ignoring her, not showing empathy, and called RN a bitch. She has a good appetite, +BTs, is passing gas, voiding qs, clear yellow, S!, S2, LS diminished in bases. She rates her pain 4-8/10. Only moderate relief from 10 mg oxycodone.
[2020-02-24 01:00] VITALS: BP 119/72; PULSE 89; RESP 16; TEMP 36.7; O2SAT 92
--- NOTE | 2020-02-24 05:09 | PC.NURSE ---
Addendum entered by Erna Salinas R.N. 02/24/20 06:23: After 30 minutes of pt yelling out ow and mommy and BP still elevated (147/78 with HR of 101) I administered 0.5 Ativan PO. pt resting quietly approximately 10 minutes after ativan administration. Addendum entered by Erna Salinas R.N. 02/24/20 05:51: At 0545 pt started yelling out hello with some load moaning. I administered 5mg Oxycodone PO and repositioned patient with pillows and the bed. Patient yelled out ow with each reposition movement. Original Note: NOC shift. pt alert to voice and touch and forgetful. Slept most of shift with a couple out loud yells, but when I responded pt was still sleeping. Barnes draining to gravity. NS infusing at 75/hr to right forearm PIV and tolerating well. Diminished lung sounds.
[2020-02-24] MEDS: PANTOPRAZOLE 20 MG TABLET PO (05:43)
[2020-02-24] MEDS: OXYCODONE IR 5 MG TABLET PO ×2 (05:43→18:10)
[2020-02-24] MEDS: LORazepam 0.5 MG TABLET PO ×2 (06:12→13:27)
[2020-02-24 06:37] VITALS: BP 127/60; PULSE 94; RESP 17; TEMP 36.8; O2SAT 94
[2020-02-24] MEDS: GABAPENTIN 300 MG CAPSULE PO (09:40)
[2020-02-24] MEDS: DOCUSATE 100 MG CAPSULE PO (09:40)
[2020-02-24] MEDS: ASPIRIN EC 81 MG TABLET PO (09:40)
[2020-02-24 09:44] VITALS: BP 152/83; PULSE 93; RESP 20; O2SAT 95
[2020-02-24] MEDS: OXYCODONE ER 10 MG TAB PO (09:45)
[2020-02-24 09:46] VITALS: BP 152/83; PULSE 93
[2020-02-24] MEDS: dexAMETHasone 1 MG TABLET 2 MG PO (09:46)
[2020-02-24] MEDS: METOPROLOL ER 50 MG TABLET PO (09:46)
--- NOTE | 2020-02-24 11:58 | PM.CHAP ---
Spoke with Pt's nurse (Barbara) and CM (Maegan) to follow up Ethics Committee consult with Dr. Duarte regarding appropriate care. Maegan shared that Pt had declined surgery and was open to returning to hospice care, probably in an assisted living facility. Staff and this bakery products checker were appreciative of Betzaida Hahn's input, of Dr. Duarte' conversation with Pt and for our CM staff's work in finding appropriate [facility] care for this Pt. Rupert Tracey [phone]
--- NOTE | 2020-02-24 12:48 | PM.PN.1 ---
Subjective Subjective Date Patient Seen: 02/24/20 Interval history: Patient is an 79-year-old female with locally metastatic breast cancer who presented with left hip and wrist fractures after ground level fall at home. Patient was seen by Dr. Duarte for orthopedic consultation as well as Dr. Betzaida Hahn for [facility] ED of medicine consultation. She has elected to forego surgery and resume hospice care. Patient has been comfortable except when has to change position in bed. Exam Vital Signs (past 8 hours): - 02/24/20 06:37 02/24/20 09:44 02/24/20 09:46 Temperature 98.2 F Pulse Rate 94 H 93 H 93 H Respiratory Rate 17 20 Blood Pressure 127/60 152/83 H 152/83 H Pulse Oximetry 94 95 Oxygen Delivery Method Room Air Oxygen Flow Rate 0 Narrative Exam Narrative: General: Patient is sleeping but arousable and able to communicate briefly but then falls asleep. Objective Labs Result Diagrams: 02/22/20 08:35 02/22/20 10:25 Assessment & Plan Assessment & Plan narrative: Patient is an 79-year-old female with locally metastatic breast cancer who presented with left hip and wrist fractures after ground level fall at home. Patient was seen by Dr. Duarte for orthopedic consultation as well as Dr. Betzaida Hahn for [facility] ED of medicine consultation. Since admission, she has elected to forego surgery and resume hospice care. 1. Acute left hip fracture, secondary to osteoporosis, active -appreciate Ortho consult by Dr. Duarte, ethics consultation team input, and palliative medicine consult with Dr. Betzaida Hahn -patient has elected to forego surgery and resume hospice care -discontinued IV fluids and IV analgesics -oxycodone ER 10 mg b.i.d. -oxycodone IR 5 mg q.3 hours as needed -Barnes catheter may be kept in for comfort -no routine vitals 2. Acute left wrist fracture secondary to osteoporosis, active -splinted in the ED 3. Chronic atrial fibrillation, present on admission, active -continue metoprolol succinate 50 mg daily and aspirin 81 mg daily 4. History of cardiomyopathy with reduced LVEF, present on admission, active -appears asymptomatic and has not required diuretics -continue metoprolol succinate 50 mg daily -discontinued losartan as patient will likely end up overmedicated as getting closer to end of life 5. Locally metastatic cancer, likely breast primary, present on admission -hospice was seeing patient prior to this admission -continue dexamethasone 2 mg daily 6. Hypertension, present on admission, chronic -severe elevated BP 218/125 in ED due to pain -last BP only mildly elevated -continue metoprolol succinate 50 mg q.d. but discontinue losartan, as above 7. Bowel regimen -stool softener, Senokot 2 tablets HS, milk of magnesium as needed The plan currently is for patient to resume home hospice. The hospice team has been very helpful to get everything in place for her to discharge tomorrow. There will be volunteers staying with her so she can have around the clock care. Patient is eager to return home and be with her pets. Quality VTE Deep Vein Thrombosis/Pulmonary Embolism Present on Admission: No
[2020-02-24 13:00] VITALS: O2SAT 96
[2020-02-24] MEDS: ACETAMINOPHEN 325 MG TABLET 650 MG PO (13:26)
--- NOTE | 2020-02-24 13:34 | PC.NURSE ---
Day shift note: Patient resting between care, alert, and oriented to self and situation. Repositioning to offload pressure, with caution to LUE and LLE. CMS to LUE and LLE warm, pink, and movable. LUE radial pulse not palpable due to Volar splint. Pericare and oral care provided during shift. Patient requires frequent reassurance during position changes, is very guarded and fearful with movement. Medicated for pain as ordered, using FLACC scale. High risk precautions maintained, call light within reach. Inconsistent with call light use, will use at times and other times calls out for staff. Dr. Gallegos at patients side this am, discussing plan of care including disposition.
--- NOTE | 2020-02-24 14:21 | CM.DPC ---
DCP: continued: Worked on specifics of the d/c plan throughout today: Main points: Pt is now able to clearly identify that she wishes to go to her home setting for care. She is aware that the HNW team are helping arrange 24/7 private pay caregiver staff using [facility]. . . Face sheet and current documentation have been faxed to them. She acknowledges that she understands that she will need to be responsible for the caregiver payment and agrees to this. She states she will be very glad to be going home tomorrow and that she is finally feeling comfortable enough to rest. She seems much clearer and more alert today. Have spoken several times to [facility] Laurie and social worker clinical Yamile who has been coordinating the home care agency piece. [facility] RN Gardenia, JAELYN Ovalle and Dr. Quintero have been working together this weekend to help put this plan in place. Full package of DME will be delivered to pt's home and Yamile is coordination with neighbors Nadira and Maxim (who are also caring for pt's pets). Ambulance will need to be set up to take pt home: goal: to arrive there about 1230. Caregiver agency liaison will be there at 1230 for start the assessment. The 24/ team has been gathered with caregiver coming on shift at 1430. [facility] will be there about 1400. Pt will go with a hart catheter in place. She is bedbound. SHAWN/Jenny is left a message re the d/c dispo and thanked for her helpfulness in setting up a Plan B. Dr. Gallegos was updated this morning on this current plan. P: home tomorrow: as above. Recommend setting up ambulance transport first thing in the morning. DCP team will be following to facilitate.
[2020-02-24 15:40] VITALS: RESP 15
[2020-02-24] MEDS: SENNOSIDES 8.6 MG TABLET 17.2 MG PO (20:58)
[2020-02-25] MEDS: LORazepam 0.5 MG TABLET PO ×2 (00:06→11:58)
[2020-02-25] MEDS: OXYCODONE IR 5 MG TABLET PO ×3 (00:06→09:18)
[2020-02-25] MEDS: PANTOPRAZOLE 20 MG TABLET PO (06:13)
[2020-02-25] MEDS: GABAPENTIN 300 MG CAPSULE PO (08:00)
[2020-02-25] MEDS: ACETAMINOPHEN 325 MG TABLET 650 MG PO (08:00)
[2020-02-25] MEDS: DOCUSATE 100 MG CAPSULE PO (08:00)
[2020-02-25] MEDS: ASPIRIN EC 81 MG TABLET PO (08:00)
[2020-02-25] MEDS: dexAMETHasone 1 MG TABLET 2 MG PO (08:01)
[2020-02-25] MEDS: METOPROLOL ER 50 MG TABLET PO (08:01)
[2020-02-25] MEDS: OXYCODONE ER 10 MG TAB PO (08:01)
--- NOTE | 2020-02-25 08:41 | CM.DPC ---
Addendum entered by Rosaline Lopez R.N. 02/25/20 10:55: Dr. Alberts signed BLS form. BLS curing pickling packer time is scheduled for noon today. Updated nurse, Alexandrea, and Dr. Alberts is aware, she completed discharge summary. Zuleika from [facility] called and asked for discharge summary. Went ahead and faxed it over to her, along with medication list. Let her know about time of curing pickling packer, and caregiving agency is to be there in the home at 12:30. BLS form placed where resident's chart is. Original Note: DCP Cont: Completed BLS transport form, will have Dr. Alberts sign form. [facility] will call and set up transport for noon, so she can be in home at 12:30. Hospice is to open patient at 1400, and caregiver assessment will be aty 12:30. P:DCP to continue to follow. Will have Dr. Alberts sign BLS form, and get discharge orders. Rosaline Lopez RN/[employer]
--- NOTE | 2020-02-25 09:13 | P.DS_ITS ---
History of Present Illness History of Present Illness Date Patient Seen: 02/25/20 Chief complaint: GLF Narrative: Patient is an 79-year-old female with advanced stage possible primary breast cancer metastatic to the left axillary lymph nodes, history of chronic atrial fibrillation who was transported by EMS to emergency department after ground level fall at home. She is a little bit unclear about how she tripped when I interviewed her but per ER physician note she was out walking her dog this morning when she tripped and fell landing on her left wrist and hip suffering significant pain and obvious deformities. She was unsure if she hit her head or not but head CT was negative. Hip x-ray showed intertrochanteric proximal left femur fracture. Upper extremity x-ray showed comminuted intra- articular distal radius fracture and displaced ulnar styloid process fracture. Patient was recently enrolled in hospice for locally metastatic cancer. She last saw Dr. August Zeng for oncology on 12/11/2019 and had declined breast MRI and sometime after the visit made decision to decline palliative chemotherapy treatment and start hospice instead. She lives independently although recently gave up driving. 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 She does report 5 lb weight loss in the last 2 weeks. She initially presented in May 2019 after she found 2 lumps in her left axilla. Mammogram showed lymph node in left axilla. She had ultrasound-guided biopsy of left axillary lymph n odes on 07/18/2019 which showed metastatic poorly differentiated adenocarcinoma with indeterminate primary site. Cancer cells were negative for ER and VA and HER2. In July 2019 she had surgical excision of palpable left breast mass which was negative for malignancy. In August 2019 she had a PET/CT which showed mild increased uptake in the left breast and multiple hypermetabolic left axillary lymph nodes consistent with metastases but no distal metastases. Patient has of hypertension, cardiomyopathy with reduced LV systolic function, chronic AFib and was taken off of Eliquis earlier this year and started on low- dose aspirin instead. She has no history of CAD or LA. An echo on 10/26/2018 showed decreased LV systolic function with LVEF 35-45%, moderate global hypokinesis, moderate MR, mild to moderate TR unchanged from last echo. She has not required diuretic therapy for her cardiomyopathy. She is a former smoker and carries diagnosis of COPD but it does not appear she has needed inhalers. She denies chest pain or dyspnea. Discharge Providers Provider Date of admission: 02/22/20 09:00 Discharge Date: 02/25/20 Primary care physician: Amanda Castro MD Consults: 02/22/20 08:45 Consult to Orthopedic Surgery Stat Comment: Consulting Provider: Jaydon Duarte Reason for consultation: hip wrist fracture Has provider been notified: Yes 02/22/20 11:17 Consult to Dietitian, Adult Routine Comment: Reason For Exam: moderate appetite, weight loss 02/22/20 16:28 Consult to Palliative Care Routine Comment: Consulting Provider: Betzaida Hahn Discharge provider: Mirlande Alberts MD Summary Hospital Course Discharge Diagnosis: 1. Left Intratrochanteric Fracture s/p Ground Level Fall 2. Left distal radius fracture with displaced ulnar styloid, following a ground level fall 3. Metastatic Breast Cancer 4. Hypertension 5. Chronic Systolic Heart Failure, Reduced ejection fraction of 35-45% 6. Chronic Atrial Fibrillation 7. COPD Hospital Course: The patient is a 79 y/o female with a history of COPD, Chronic Atrial Fibrillation, Metastatic Breast Cancer who presented following a ground level fall. Patient sustained a fracture to the left wrist and left hip. Palliative Care consultation and Orthopedic Consultations were obtained at the time of admission. Following discussion with both the patient elected not to pursue surgical treatment. The patient had a temporary splint placed on the left wrist. As she had previously been followed under the care of hospice, arrangements were made for her to be discharged home under the care of hospice per her stated wishes. The patient continued to have some significant pain. Her medications were adjusted. Arrangements were made for her to be discharged home with hospice. She was deemed appropriate for discharge. Status at Discharge Cognitive/behavioral status at discharge: oriented Functional status at discharge: bed bound Overall status at discharge: patient is not back to baseline Time Spent with Patient Time spent: Less than 30 minutes Exam Vital Signs (past 8 hours): Oxygen Delivery Method Room Air Oxygen Flow Rate 0 Narrative Exam Narrative: Frail elderly female who reports pain at this time HEENT: NC/AT, bilateral temporal wasting, oropharynx clear Lungs: decreased breath sounds but clear to auscultation CV: Irregularly, Irregular, nl Sl S2 Abd: soft/ non tender Ext: Left wrist with temporary splint in place Left leg externally rotated and shortened Objective Labs Result Diagrams: 02/22/20 08:35 02/22/20 10:25 Discharge Plan Discharge Plan Patient Disposition: Home Discharge orders & Medications Prescriptions: New lorazepam 0.5 mg Tablet 0.5 mg PO Q6HR PRN (Reason: Anxiety) Qty: 10 RF: 0 oxycodone 5 mg Tablet 5 mg PO Q3HR PRN (Reason: Pain, Moderate (4-6)) 10 Days RF: 0 oxycodone [OxyContin] 20 mg tablet,oral only,ext.rel.12 hr 20 mg PO BID Qty: 30 RF: 0 sennosides [senna] 8.6 mg Tablet 17.2 mg PO BEDTIME 10 Days RF: 0 Continued acetaminophen 325 mg tablet 325 mg PO Q4-5H PRN (Reason: Pain (Scale Score 1-3)) RF: 0 dexamethasone 2 mg tablet 2 mg PO DAILY RF: 0 docusate sodium [Colace] 100 mg capsule 100 mg PO DAILY RF: 0 omeprazole 20 mg capsule,delayed release(DR/EC) 20 mg PO DAILY RF: 0 losartan 50 mg Tablet 50 mg PO BID RF: 0 metoprolol succinate 50 mg Tablet Extended Release 24 Hr 50 mg PO DAILY RF: 0 gabapentin 300 mg Capsule 300 mg PO BID RF: 0 Discontinued aspirin 81 mg tablet,delayed release (DR/EC) 81 mg PO DAILY RF: 0 Follow up/Referrals: Amanda Castro MD [Primary Care Provider] - Diet/Activity/Treatments Diet: Diet as Tolerated Activity: bed rest Other treatments: temporary wrist splint changed in [address] Duarte office for directions Discharge Data Primary Care Provider: Amanda Castro Quality VTE Deep Vein Thrombosis/Pulmonary Embolism Present on Admission: No
--- NOTE | 2020-02-25 12:08 | PC.NURSE ---
DISCHARGE: DR. LEIGH SAW PATIENT AT 0900, PATIENT WAS STILL IN PAIN AFTER AM MEDS GIVEN. PER DR. LEIGH'S VERBAL ORDER, AN ADDITIONAL TAB OF 5MG OXYCODONE IR GIVEN. PATIENT STILL CRIES OUT WITH PAIN W/ MVMT, BUT THEN CALMS AND STATES THE PAIN IS W/ MVMT ONLY. PATIENT IS CONFUSED BUT ABLE TO MAKE NEEDS KNOWN. CALLED [facility] TO CONFIRM PLAN. THE ENTRY LEVEL LAB TECHNICIAN STATES THAT THE CLINICAL DIRECTOR, RASHEEDA HAS ALREADY LEFT AND WILL MEET THE AMBULANCE AT THE PATIENT'S HOME IN [facility]. SHE WILL STAY WITH THE PATIENT UNTIL HOSPICE COMES AT 1400, AND UNTIL THE 24 HR CAREGIVER STAFF COMES AT 1430. PROVIDED THE PHONE NUMBER TO REACH THIS SECURITY INVESTIGATOR FOR ANY QUESTIONS. ADMINISTERED 0.5MG PO ATIVAN PRIOR TO TRANSPORT. REPORT GIVEN TO THE AMBULANCE PERSONELL. [employer]NA[employer] PAPERWORK INCLUDING SCRIPTS SENT WITH PATIENT.
--- NOTE | 2020-02-25 15:43 | CM.MNRNOTE ---
Addendum entered by Deborah Jamison R.N. 02/25/20 15:45: MD was Dr. Duarte. Original Note: [place] requested that I place this note from the Ethics Committee meeting into the patient's file: Ethics Consult February 22, 2020 Case History: Patient is an 79 year-old female. Fell over pet resulting in a wrist and hip fracture on same side. Patient lives alone with assistance from Hospice due to breast cancer. Patient has been seen in oncology for treatments. She recently declined further treatment and has declined steadily, more rapidly in the past month. She has short-term memory problems and anxiety. She has a limited support system, with no family. She has no healthcare power of transactional attorney and unsure if she has a healthcare directive. Question: Should the surgeon be doing one relatively minor surgery and one major surgery on this patient? It would ultimately be shortening her life span by doing the surgeries due to ambulation issues. Initial relief would be noted, however she would be expected to ambulate in a few days, however with her wrist fracture, she would not be able to ambulate and be as mobile as soon, ultimately putting her health at risk. Elective cases have been cancelled at the hospital due to the COVID-19 virus. Would this be a responsible use of resources? Q: Is she competent now? A: Yes, conversations have occurred. If she has the capacity to make her own decisions, she is competent. She made the choice not to go further with her cancer treatments. Q: If surgery is done, how long would she be in the hospital? A: Typically, she would be in-house for three days, and then transferred to SNF. In terms of medical stability, she could leave in 1-2 days. Q: If she had the surgery, would she be able to return home at some point? A: She cannot go home as she has no caregiver. Care management would need to work on placement that may not be within the community. She may be competent to make her own decisions, but it is our responsibility to make her aware of all the risks. Is the surgeon obligated to offer her the surgery in light of the current pandemic crisis? Critical care triage: care needs to be critical. Is there a potential for something down the line? How long do we keep a patient before transferring to a SNF? (Regardless of surgery or not) Recommendations: Conversation should be a team conversation. Palliative Care should be included in the conversation. The ultimate decision is with the surgeon weather or not he offers surgery. Summary: Given the fact that she is legally considered competent, and since we are not in a critical state right now, she is able to make her own decisions. Surgeon will give her all options and possible outcomes, and let her make the decision.
== END 2020-02-25 12:13 | disposition home or self-care (01) | DRG 543 ==
LOC: ED 08:00 → AC 09:01
PROVIDERS: Emergency Medicine; Admitting Provider Internal Medicine; Emergency Provider Emergency Medicine; Family Provider Internal Medicine; PCP Internal Medicine; Referring Provider Emergency Medicine; Visit Provider Internal Medicine
DX: M80.032A Age-related osteoporosis with current pathological fracture, left forearm, initial encounter for fracture (principal); I48.20 Chronic atrial fibrillation, unspecified; C77.3 Secondary and unspecified malignant neoplasm of axilla and upper limb lymph nodes; Z68.1 Body mass index [BMI] 19.9 or less, adult; R64 Cachexia; S52.612A Displaced fracture of left ulna styloid process, initial encounter for closed fracture; I42.9 Cardiomyopathy, unspecified; I50.22 Chronic systolic (congestive) heart failure; M80.052A Age-related osteoporosis with current pathological fracture, left femur, initial encounter for fracture; C50.919 Malignant neoplasm of unspecified site of unspecified female breast; I11.0 Hypertensive heart disease with heart failure
CPT/HCPCS: 29125; 36415; 51701; 70450; 71045; 73070; 73100; 73502; 80048; 81001; 84132; 85025; 85610; 93005; 96374; 96376; 99233; 99285; 99497; J2060; J2270; J2405; J3010